=== PATIENT | female | born 1980 | race Caucasian/White ===

== ENCOUNTER 2023-11-24 22:24 | Emergency (ER) | payer OTHER, SELFPAY ==
[2023-11-24 22:35] VITALS: BP 131/95; PULSE 98; RESP 16; TEMP 37.2; O2SAT 98
[2023-11-24 22:51] LABS: Internal Control Within Normal Limits; Strep A Antigen Screen Negative
--- NOTE | 2023-11-24 23:07 | ED_ITS ---
HPI - General Adult General Chief complaint: Upper Respiratory Infection Stated complaint: CONGESTION, SORE THROAT Time Seen by Provider: 11/24/23 23:02 Source: patient Mode of arrival: walk-in Limitations: no limitations History of Present Illness HPI narrative: 43-year-old female presents for sore throat. She and her son are both being seen for the same issue. She developed for sore throat about three days ago. No fever vomiting or productive cough. Hurts more when she swallows. She is primarily worried about strep throat. Related Data Home Medications Medication Instructions Recorded Confirmed desvenlafaxine succinate 50 mg mg PO 11/24/23 tablet,extended release 24 hr levothyroxine 125 mcg tablet mcg 11/24/23 (Synthroid) metformin 500 mg tablet,extended mg PO 11/24/23 release 24 hr omeprazole 20 mg capsule,delayed mg 11/24/23 release potassium bicarbonate-citric acid 11/24/23 25 mEq effervescent tablet (Klor-Con/EF) ropinirole 4 mg tablet mg 11/24/23 sumatriptan succinate 25 mg tablet mg PO 11/24/23 Allergies Allergy/AdvReac Type Severity Reaction Status Date / Time naproxen Allergy Verified 11/24/23 22:38 Penicillins Allergy Verified 11/24/23 22:38 Review of Systems ROS Narrative A ten point review of systems is negative except as noted above. PFSH PFS Social History Smoking status: Never smoker Exam Narrative Exam Narrative: Nurses note and vital signs reviewed and patient is not hypoxic. General: The patient appears well and in no apparent distress. Patient is resting comfortably on cart. Skin: Warm, dry, no pallor noted. There is no rash noted. Head: Normocephalic, atraumatic Eye: Normal conjunctiva, no drainage Ears, Nose, Mouth, and Throat: oral mucosa is moist. Nares patent. no perito nsillar swelling. Uvula midline. There is mild erythema. She is handling her oral secretions well. Cardiovascular: Regular Rate and Rhythm Respiratory: Patient is in no distress, no accessory muscle use, lungs are clear to auscultation, no wheezing, rales or rhonchi Back: non-tender GI: soft and nontender Musculoskeletal: no joint swelling Neurological: A&O, normal speech Psychiatric: Cooperative Constitutional Vital Signs, click to edit/add: Last Vital Signs Temp 98.9 F 11/24/23 22:35 Pulse 98 H 11/24/23 22:35 Resp 16 11/24/23 22:35 BP 131/95 H 11/24/23 22:35 Pulse Ox 98 11/24/23 22:35 Course Vital Signs Vital signs: Vital Signs Temperature 98.9 F 11/24/23 22:35 Pulse Rate 98 H 11/24/23 22:35 Respiratory Rate 16 11/24/23 22:35 Blood Pressure 131/95 H 11/24/23 22:35 Pulse Oximetry 98 11/24/23 22:35 Temperature 98.9 F 11/24/23 22:35 Pulse Rate 98 H 11/24/23 22:35 Respiratory Rate 16 11/24/23 22:35 Blood Pressure 131/95 H 11/24/23 22:35 Pulse Oximetry 98 11/24/23 22:35 Medical Decision Making MDM Narrative Medical decision making narrative: strep test negative. She was given IM Decadron. There is no indication for an antibiotic. Treatment diagnosis and follow-up were discussed with the patient. Differential Diagnosis Differential Diagnosis: strep throat, viral pharyngitis, peritonsillar abscess Lab Data Lab results reviewed: Yes I reviewed the patient's lab results Labs: Lab Results 11/24/23 Range/Units 22:38 Streptococcus Screen Negative Discharge Plan Discharge Chief Complaint: Upper Respiratory Infection Clinical Impression: Viral pharyngitis Patient Disposition: Home, Self-Care Time of Disposition Decision: 23:09 Condition: Good Prescriptions / Home Meds: No Action sumatriptan succinate 25 mg tablet PO levothyroxine [Synthroid] 125 mcg tablet omeprazole 20 mg capsule,delayed release(DR/EC) metformin 500 mg tablet extended release 24 hr PO Klor-Con/EF 25 mEq tablet, effervescent ropinirole 4 mg tablet desvenlafaxine succinate 50 mg tablet extended release 24 hr PO Instructions: Pharyngitis (ED) Stand Alone Forms: Portal Instructions Referrals: REYNA ALVARENGA [Primary Care Provider] - 1 week
[2023-11-24] MEDS: DEXAMETHASONE SOD PHOS 10 MG/ML VIAL IM (23:28)
== END 2023-11-24 23:31 | disposition home or self-care (01) ==
PROVIDERS: Emergency Provider Emergency Medicine; PCP Physician Assistant
DX: J02.9 Acute pharyngitis, unspecified (principal); Z79.84 Long term (current) use of oral hypoglycemic drugs; Z79.899 Other long term (current) drug therapy
CPT/HCPCS: 87070; 87880; 96372; 99284; J1100

== ENCOUNTER 2024-12-08 16:39 | Emergency (ER) | payer OTHER, SELFPAY ==
[2024-12-08] VITALS (19 sets, daily range): BP systolic 126–152; BP diastolic 86–95; PULSE 80–100; TEMP 36.8; O2SAT 80–98; BMI 33.6
--- OUTSIDE RECORDS SUMMARY | 2024-12-08 16:46 | XMS_ITS | CCD ---
Author Organization [facility] Care Team Providers Care Molding Manager Name Role Phone LIZETT TORRES Unavailable Unavailable LIZETT TORRES Unavailable Unavailable Tiffany Quintanilla Attending Unavailable Ant Henderson Primary Care Unavailable PHYLLIS BROWN Consulting Unavailable CAMILA COUGHLIN JR Attending Unavailable CAMILA COUGHLIN JR Admitting Unavailable CAMILA COUGHLIN JR Consulting Unavailable Isabell CABRERA Primary Care Physician Shayy ALAVRENGA Primary Care Physician Shayy Wolfe Unavailable Arjun Krishnamurthy MD Primary Care Provider [phone] Shayy Wolfe Unavailable [phone] Shayy ALVARENGA Referring Unavailable Shayy ALVARENGA Attending Unavailable Shayy ALVARENGA Admitting Unavailable ATIYA WRIGHT Attending Unavailable ATIYA WRIGHT Attending Unavailable SHAYY ALVARENGA Attending Unavailable SHAYY ALVARENGA Attending Unavailable Allergies Allergy Classification Reported Allergen(s) Allergy Type Date of Onset Reaction(s) Facility (19 sources) nalbuphine; Translations: [NALBUPHINE] Drug Allergy 8 GI intolerance [facility] Repository (1 source) penicillin; Translations: [PENICILLIN] Drug Allergy 8 [facility]OF [facility] Repository (2 sources) Nalbuphine; Translations: [Nubain] Drug Allergy 5 [facility] Repository (9 sources) Penicillins; Translations: [penicillins] Drug allergy (disorder) 5 rash [facility] Repository (8 sources) atorvastatin; Translations: [atorvastatin] Drug Allergy leg cramps [facility] (19 sources) Naproxen; Translations: [naproxen] Drug Allergy 3 Other, Unknown [facility] (11 sources) Penicillin G Drug Allergy 8 Hives [facility] Medications Current Medications Medication Drug Class(es) Dates Sig (Normalized) Sig (Original) acyclovir 400 mg oral tablet (5 sources) Herpesvirus Nucleoside Analog DNA Polymerase Inhibitor, Herpes Simplex Virus Nucleoside Analog DNA Polymerase Inhibitor, Herpes Zoster Virus Nucleoside Analog DNA Polymerase Inhibitor Start: 11-05-2024 End: 11-15-2024 take 1 tablet by mouth in the morning, then take 1 tablet by mouth in the evening, then take 1 tablet by mouth at bedtime acyclovir (Zovirax) 400 MG tablet Indications: Oral herpes simplex infection Take 1 tablet (400 mg) by mouth in the morning and 1 tablet (400 mg) in the evening and 1 tablet (400 mg) before bedtime. Do all this for 10 days. 30 tablet 11/05/2024 11/15/2024 Active ascorbic acid 500 mg chewable tablet (11 sources) Vitamin C ascorbic acid (Vitamin C) 500 MG chewable tablet Chew 1 tablet in the morning. Active biotin 10 mg oral tablet (11 sources) take 1 tablet by mouth once daily biotin 90326 MCG tablet Take 1 tablet by mouth 1 (one) time each day at the same time. Active Calcium Citrate (7 sources) Start: 03-31-2019 calcium citrate 2664-6391 mg, Oral, BID, Refills(s) 0 Start Date: 03/31/19 Status: Ordered 24 hr desvenlafaxine succinate 50 mg extended release oral tablet (18 sources) Serotonin and Norepinephrine Reuptake Inhibitor Start: 09-25-2024 take 1 tablet by mouth once daily desvenlafaxine (Pristiq) 50 MG 24 hr tablet Indications: Current mild episode of major depressive disorder, unspecified whether recurrent (HCC) (CMS/HCC) Take 1 tablet (50 mg) by mouth Daily 90 tablet 3 09/25/2024 Active Start: 12-11-2023 End: 09-25-2024 take 1 tablet by mouth every twenty-four hours in the morning desvenlafaxine (Pristiq) 50 MG 24 hr tablet Indications: Current mild episode of major depressive disorder, unspecified whether recurrent (HCC) (CMS/HCC) Take 1 tablet (50 mg) by mouth in the morning. 90 tablet 3 12/11/2023 09/25/2024 Discontinued Start: 06-06-2022 take 1 tablet by reynaldo th once daily Pristiq 50 mg Tab-ER 50 mg = 1 tab(s), Oral, Daily, # 90 tab(s), Refills(s) 3, Pharmacy: [facility], 167, cm, 03/08/22 9:03:00 EDT, Height/Length Dosing, 90.3, kg, 03/08/22 9:03:00 EDT, Weight Dosing Start Date: 06/06/22 Status: Ordered Start: 12-06-2021 take 1 tablet by reynaldo th once daily Pristiq 50 mg Tab-ER 50 mg = 1 tab(s), Oral, Daily, # 90 tab(s), Refills(s) 3, Pharmacy: [facility], 167, cm, 12/06/21 9:27:00 EST, Height/Length Dosing, 91.8, kg, 12/06/21 9:27:00 EST, Weight Dosing Start Date: 12/06/21 Status: Ordered Echinacea 650 MG capsule (11 sources) take 1 capsule by mo [facility] in the morning Echinacea 650 MG capsule Take 1 capsule by mouth in the morning. Active take 1 capsule by mouth in the m orning Echinacea 650 MG capsule Take 1 capsule by mouth in the morning. 0 Active Effer-K 25 mEq oral tablet, effervescent (7 sources) Start: 06-28-2022 End: 06-23-2023 take 1 tablet by mouth twice daily Effer-K 25 mEq oral tablet, effervescent 1 tab, Oral, BID, X 90 day(s), # 180 tab(s), Refills(s) 3, Pharmacy: [facility], 167, cm, 03/08/22 9:03:00 EDT, Height/Length Dosing, 90.3, kg, 03/08/22 9:03:00 EDT, Weight Dosing Start Date: 06/28/22 Stop Date: 06/23/23 Status: Ordered Start: 11-29-2021 take 1 tablet by reynaldo twice daily Effer-K 25 mEq oral tablet, effervescent 1 tab, Oral, BID, # 60 tab(s), Refills(s) 11, Pharmacy: [facility], 167, cm, 09/07/21 10:03:00 EDT, Height/Length Dosing, 88.3, kg, 11/29/21 9:58:00 EST, Weight Dosing Start Date: 11/29/21 Status: Ordered ferrous sulfate 325 mg oral tablet (11 sources) take 1 tablet by mouth at mealtime ferrous sulfate 325 (65 Fe) MG tablet Take 325 mg by mouth in the morning. Take with meals. Active fluticasone propionate 0.05 mg/actuat metered dose nasal spray (1 source) Corticosteroid Start: 2 fluticasone 0.05 mg/inh Nasal [place] 1 spray(s), Nasal, BID, 1 EA, Refill(s) 0, each nostril, [facility], 167, cm, 12/06/21 9:27:00 EST, Height/Length Dosing, 91.8, kg, 12/06/21 9:27:00 EST, Weight Dosing Start Date: 12/06/21 Status: Ordered fluticasone 0.05 mg/inh Nasal [place] (3 sources) Start: 2 fluticasone 0.05 mg/inh Nasal [place] 1 spray(s), Nasal, BID, 1 EA, Refill(s) 0, each nostril, [facility], 167, cm, 12/06/21 9:27:00 EST, Height/Length Dosing, 91.8, kg, 12/06/21 9:27:00 EST, Weight Dosing Start Date: 12/06/21 Status: Ordered hydrOXYzine pamoate 25 mg oral capsule (4 sources) Antihistamine Start: 1 hydrOXYzine pamoate 25 mg Cap 25 mg = 1 cap(s), Oral, Once, Take 1-2 hours prior to bed time, # 30 cap(s), Refills(s) 2, Pharmacy: [facility], 167, cm, 06/07/21 9:35:00 EDT, Height/Length Dosing, 88.8, kg, 06/07/21 9:35:00 EDT, Weight Dosing Start Date: 06/07/21 Status: Ordered levothyroxine sodium 0.125 mg oral tablet (18 sources) l-Thyroxine Start: 4 End: 4 take 1 tablet by mouth before mealtime levothyroxine (Synthroid, Levoxyl) 125 MCG tablet Indications: Acquired hypothyroidism (CMS/HCC) Take 1 tablet (125 mcg) by mouth in the morning. Take before meals. 90 tablet 3 09/25/2024 Active Start: 06-06-2022 take 1 tablet by reynaldo th once daily levothyroxine 125 mcg (0.125 mg) Tab 125 microgram = 1 tab(s), Oral, Daily, # 90 tab(s), Refills(s) 3, Pharmacy: [facility], 167, cm, 03/08/22 9:03:00 EDT, Height/Length Dosing, 90.3, kg, 03/08/22 9:03:00 EDT, Weight Dosing Start Date: 06/06/22 Status: Ordered Start: 05-16-2021 take 1 tablet by reynaldo th once daily levothyroxine 125 mcg (0.125 mg) Tab 125 microgram = 1 tab(s), Oral, Daily, # 90 tab(s), Refills(s) 3, Pharmacy: [facility], 167, cm, 05/16/21 8:36:00 EDT, Height/Length Dosing, 90, kg, 05/16/21 8:36:00 EDT, Weight Dosing Start Date: 05/16/21 Status: Ordered 24 hr metFORMIN hydrochloride 500 mg extended release oral tablet (11 sources) Biguanide Start: 12-11-2023 End: 12-10-2024 take 1 tablet by mouth every twenty-four hours at mealtime metFORMIN XR (Glucophage-XR) 500 MG 24 hr tablet Indications: Prediabetes Take 1 tablet (500 mg) by mouth in the evening. Take with meals 90 tablet 3 09/25/2024 Active Non-Formulary Medication (4 sources) Start: 08-16-2020 Non-Formulary Medication See Instructions, 1 qd po Start Date: 08/16/20 Status: Ordered omeprazole 20 mg delayed release oral capsule (16 sources) Proton Pump Inhibitor Start: 03-26-2019 End: 09-25-2024 take 1 capsule by mouth before mealtime omeprazole (PriLOSEC) [address] capsule Indications: Gastroesophageal reflux disease with esophagitis without hemorrhage Take 1 capsule (20 mg) by mouth in the morning. Take before meals. 90 capsule 3 09/25/2024 Active omeprazole 20 mg Cap-DR (2 sources) Start: 03-26-2019 take 1 capsule by mouth once daily omeprazole 20 mg Cap-DR 20 mg = 1 cap(s), Oral, Daily, # 30 cap(s), Refills(s) 0 Start Date: 03/26/19 Status: Ordered potassium bicarbonate 25 meq effervescent oral tablet (7 sources) Start: 10-29-2023 potassium bicarbonate (Klor-Con/EF) 25 MEQ effervescent tablet Start: 11-29-2021 End: 06-23-2023 take 1 tablet by mouth twice daily Effer-K 25 mEq oral tablet, effervescent 1 tab, Oral, BID, X 90 day(s), # 180 tab(s), Refills(s) 3, Pharmacy: [facility], 167, cm, 03/08/22 9:03:00 EDT, Height/Length Dosing, 90.3, kg, 03/08/22 9:03:00 EDT, Weight Dosing Start Date: 06/28/22 Stop Date: 06/23/23 Status: Ordered predniSONE 20 mg oral tablet (2 sources) Start: 11-11-2024 End: 11-16-2024 take 2 tablets by mouth once daily predniSONE (Deltasone) 20 MG tablet Indications: Lip swelling Take 2 tablets (40 mg) by mouth Daily for 5 days 10 tablet 11/11/2024 11/16/2024 Active 24 hr rOPINIRole 4 mg extended release oral tablet (20 sources) Nonergot Dopamine Agonist Start: 06-19-2024 End: 09-25-2024 rOPINIRole XL (Requip XL) 4 MG 24 hr tablet Indications: Restless leg syndrome TAKE 1 TABLET IN THE MORNING 90 tablet 3 09/25/2024 Active Start: 12-11-2023 take 1 tablet by reynaldo th every twenty-four hours in the morning rOPINIRole XL (Requip XL) 4 MG 24 hr tablet Indications: Restless leg syndrome Take 1 tablet (4 mg) by mouth in the morning. 90 tablet 1 12/11/2023 Active Start: 12-04-2023 take 1 tablet by mouth at bedt moni rOPINIRole (Requip) 4 MG tablet Indications: Restless leg syndrome Take 1 tablet (4 mg) by mouth at bedtime 90 tablet 1 10/29/2023 Active Start: 06-06-2022 take 1 tablet by mouth once da addison ropinirole 2 mg oral tablet, extended release 2 mg = 1 tab(s), Oral, Daily, # 90 tab(s), Refills(s) 2, Pharmacy: [facility], 167, cm, 03/08/22 9:03:00 EDT, Height/Length Dosing, 90.3, kg, 03/08/22 9:03:00 EDT, Weight Dosing Start Date: 06/06/22 Status: Ordered Start: 06-06-2022 take 1 tablet by mouth once da addison ropinirole 2 mg oral tablet, extended release 2 mg = 1 tab(s), Oral, Daily, # 90 tab(s), Refills(s) 2, Pharmacy: [facility], 167, cm, 03/08/22 9:03:00 EDT, Height/Length Dosing, 90.3, kg, 03/08/22 9:03:00 EDT, Weight Dosing Start Date: 06/06/22 Status: Ordered Start: 08-09-2021 take 1 tablet by mouth once da addison ropinirole 2 mg oral tablet, extended release 2 mg = 1 tab(s), Oral, Daily, # 90 tab(s), Refills(s) 2, Pharmacy: [facility], 167, cm, 06/07/21 9:35:00 EDT, Height/Length Dosing, 88.8, kg, 06/07/21 9:35:00 EDT, Weight Dosing Start Date: 08/09/21 Status: Ordered SUMAtriptan 25 mg oral tablet (18 sources) Serotonin-1b and Serotonin-1d Receptor Agonist Start: 10-29-2023 take 1 tablet by mouth once SUMAtriptan (Imitrex) 25 MG tablet Indications: Migraine without status migrainosus, not intractable, unspecified migraine type (CMS/HCC) Take 1 tablet (25 mg) by mouth 1 (one) time if needed for migraine 18 tablet 3 10/29/2023 Active Start: 08-14-2022 Imitrex 25 mg Tab 25 mg = 1 tab(s), Oral, Daily, PRN for migraine headache, may repeat dose after 2 hours up to a maximum of 200 mg in 24 hours, # 18 tab(s), Refills(s) 1, Pharmacy: [facility], 167, cm, 03/08/22 9:03:00 EDT, Height/Length Dosing, 90.3, kg, 03/08/22 9:03:00 EDT, Weight Dosing Start Date: 07/09/22 Status: Ordered Start: 03-08-2022 Imitrex 25 mg Tab 25 mg = 1 tab(s), Oral, Daily, PRN for migraine headache, may repeat dose after 2 hours up to a maximum of 200 mg in 24 hours, # 18 tab(s), Refills(s) 1, Pharmacy: [facility], 167, cm, 03/08/22 9:03:00 EDT, Height/Length Dosing, 90.3,... Start Date: 03/08/22 Status: Ordered Start: 11-15-2020 Imitrex 25 mg Tab 25 mg = 1 tab(s), Oral, Daily, PRN for migraine headache, may repeat dose after 2 hours up to a maximum of 200 mg in 24 hours, # 18 tab(s), Refills(s) 1, Pharmacy: [facility], 167, cm, 11/15/20 9:12:00 EST, Height/Length Dosing, 84.9,... Start Date: 11/15/20 Status: Ordered traZODone hydrochloride 50 mg oral tablet (4 sources) Serotonin Reuptake Inhibitor Start: 09-07-2021 take 1 tablet by mouth once daily at bedtime traZODONE 50 mg Tab 50 mg = 1 tab(s), Oral, Once a day (at bedtime), # 30 tab(s), Refills(s) 2, Pharmacy: [facility], 167, cm, 09/07/21 10:03:00 EDT, Height/Length Dosing, 88.3, kg, 09/07/21 10:06:00 EDT, Weight Dosing Start Date: 09/07/21 Status: Ordered Vitamin B Complex oral capsule (7 sources) Start: 03-26-2019 take 1 capsule by mouth once daily Vitamin B Complex oral capsule 1 cap(s), Oral, Daily, Refill(s) 0 Start Date: 03/26/19 Status: Ordered vitamin B12 (7 sources) Vitamin B12 Start: 03-26-2019 Vitamin B12 Refills(s) 0 Start Date: 03/26/19 Status: Ordered Completed/Discontinued Medications Medication Drug Class(es) Dates Sig (Normalized) Sig (Original) K-Effervescent 25 mEq oral tablet, effervescent (3 sources) Start: 11-24-2022 take 1 tablet by mouth twice daily K-Effervescent 25 mEq oral tablet, effervescent 25 mEq = 1 tab(s), Oral, BID, # 180 tab(s), Refills(s) 3, Pharmacy: [facility], 167, cm, 11/24/22 10:06:00 EST, Height/Length Dosing, 88, kg, 11/24/22 10:06:00 EST, Weight Dosing Start Date: 11/24/22 Status: Ordered Problems Active Problems Problem Classification Problem Date Documented Da te Episodic/Chronic Anxiety disorders (20 sources) Anxiety; Translations: [Anxiety disorder, unspecified] Onset: 3 05-16-2021 Chronic Calculus of urinary tract (18 sources) Calculus of kidney; Translations: [Kidney stone] Onset: 0 01-11-2015 Episodic Diabetes mellitus with complications (7 sources) Type II diabetes mellitus uncontrolled 10-23-2015 Chronic Diseases of mouth; excluding dental (4 sources) Oral lesion; Translations: [Unspecified lesions of oral mucosa] 11-05-2024 Episodic Disorders of lipid metabolism (16 sources) Hyperlipidemia; Translations: [Hypertriglyceridemia] Onset: 2 06-07-2021 Chronic Esophageal disorders (19 sources) Gastroesophageal reflux disease; Translations: [Gastro-esophageal reflux disease without esophagitis] Onset: 3 05-21-2015 Chronic Essential hypertension (20 sources) Hypertensive disorder; Translations: [Essential hypertension] Onset: 8 05-21-2015 Chronic Genitourinary symptoms and ill-defined conditions (7 sources) Genuine stress incontinence 10-19-2020 Chronic Headache; including migraine (19 sources) Migraine; Translations: [Migraine, unspecified, intractable, without status migrainosus] Onset: 3 08-26-2019 Chronic Mood disorders (20 sources) Depressive disorder; Translations: [Mild recurrent major depression] Onset: 2 03-31-2019 Chronic Other complications of ; puerperium affecting management of mother (7 sources) Deliveries by 05-16-2021 Episodic Other complications of (7 sources) Late entry into care 11-28-2011 Episodic Other connective tissue disease (7 sources) Pain in lower limb 06-09-2020 Episodic Other gastrointestinal disorders (7 sources) 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 Other gastrointestinal disorders (1 source) Bariatric surgery status; Translations: [Bariatric surgery status] Onset: 2 Episodic Other hereditary and degenerative nervous system conditions (19 sources) Restless legs; Translations: [Restless legs syndrome] Onset: 3 08-16-2020 Chronic Other nervous system disorders (7 sources) Paresthesia 08-26-2019 Episodic Other nervous system disorders (7 sources) Paresthesia of lower extremity 06-09-2020 Episodic Other nutritional; endocrine; and metabolic disorders (1 source) Morbid (severe) obesity due to excess calories; Translations: [Morbid (severe) obesity due to excess calories] Onset: 8 Chronic Other nutritional; endocrine; and metabolic disorders (20 sources) Body mass index 30+ - obesity 06-09-2020 Chronic Other nutritional; endocrine; and metabolic disorders (20 sources) Obesity; Translations: [Other obesity] Onset: 2 05-16-2021 Chronic Other nutritional; endocrine; and metabolic disorders (1 source) Obese class I; Translations: [Body mass index (BMI) 32.0-32.9, adult] Onset: 2 Chronic Other nutritional; endocrine; and metabolic disorders (11 sources) Morbid obesity; Translations: [Morbid (severe) obesity due to excess calories] Onset: 8 06-08-2023 Chronic Other nutritional; endocrine; and metabolic disorders (14 sources) Body mass index 25-29 - overweight 06-15-2020 Episodic Other nutritional; endocrine; and metabolic disorders (7 sources) H/O: diabetes mellitus 05-16-2021 Episodic Other nutritional; endocrine; and metabolic disorders (7 sources) H/O: raised blood lipids 05-16-2021 Episodic Other skin disorders (4 sources) Lip swelling; Translations: [Localized swelling, mass and lump, head] 11-05-2024 Episodic Residual codes; unclassified (7 sources) Increased body mass index 03-29-2020 Episodic Residual codes; unclassified (8 sources) Insomnia; Translations: [Insomnia, unspecified] Onset: 2 06-07-2021 Episodic Residual codes; unclassified (3 sources) Patient encounter status; Translations: [Other specified health status] Onset: 2 Episodic Thyroid disorders (20 sources) Hypothyroidism; Translations: [Hypothyroidism, unspecified] Onset: 2 02-06-2014 Chronic Urinary tract infections (7 sources) Acute urinary tract infection 05-16-2021 Episodic Viral infection (2 sources) Oral herpes simplex infection; Translations: [Herpesviral gingivostomatitis and pharyngotonsillitis] 11-05-2024 Episodic Past or Other Problems Problem Classification Problem Date Documented Date Episodic/Chronic Diabetes mellitus without complication (20 sources) Prediabetes; Translations: [Prediabetes] Onset: 03-08-2022 07-20-2020 Episodic Noninfectious gastroenteritis (7 sources) Gastroenteritis Onset: 05-20-2015 05-26-2015 Episodic Comment on above: ABD PAIN, DIARRHEA, NAUSEA, NO VOMITING, PT WAS SEEN IN ER ABD PAIN, DIARRHEA, NAUSEA, NO VOMITING, PT WAS SEEN IN ER Results Test Name Value Interpretation Reference Range Facility [place] Mamm Screen w/CAD if perf and 3D [place] 08-12-2024 [place] Mamm Screen w/CAD if perf and 3D [place] Exam Date/Time: 08/12/2024 15:31 EDT Reason for Exam: Z12.31 Report IMPRESSION: BIRADS 1 NEGATIVE, NORMAL INTERVAL FOLLOW-UP.12 MONTH RECALL. CLINICAL HISTORY: Z12.31. COMPARISON: 04/11/2023. COMMENT: Routine views and tomosynthesis views of both breasts were obtained. There are scattered areas of fibroglandular density. No dominant breast mass nor neoplastic calcifications are identified in either breast. There has been no significant change from the previous exam. The examination was reviewed with Computer Aided Detection. Breast Density: No Mammography is very important to your health. The current [employer] [place] [employer] and National [employer] guidelines recommends annual mammography beginning at age 40. This facility utilizes a reminder system to ensure all patients receive reminder notifications at the appropriate time based on the recommendations of this exam. Board Certified Radiologists. Accredited by the ACR and FDA. Ordering Provider: Shayy ALVARENGA FINAL REPORT Dictated: 08/12/2024 3:36 pm Hamlet Velez M.D. Signed (Electronic Signature): 08/12/2024 3:36 pm Signed by: Hamlet Velez M.D. Transcribed by: YOSHI Technologist: PREETHI Assessment: BI-RADS Category 1-Negative Recommendation: Normal interval follow-up Normal [facility] CBC W Auto Differential pane l (Bld)on 12-24-2023 Basophils (Bld) [#/Vol] 19 10*3/uL [facility] Basophils/100 WBC (Bld) 0.3 % [facility] Eosinophils (Bld) [#/Vol] 141 10*3/uL [facility] Eosinophils/100 WBC (Bld) 2.2 % [facility] Erythrocyte distribution width (RBC) [Ratio] 13.0 % 11.0 - 15.0 % [facility] Hematocrit (Bld) [Volume fraction] 38.3 % 35.0 - 45.0 % [facility] Hemoglobin (Bld) [Mass/Vol] 13.0 g/dL 11.7 - 15.5 g/dL [facility] Lymphocytes (Bld) [#/Vol] 2285 10*3/uL [facility] Lymphocytes/100 WBC (Bld) 35.7 % [facility] MCH (RBC) [Entitic mass] 30.2 pg 27.0 - 33.0 pg [facility] MCHC (RBC) [Mass/Vol] 33.9 g/dL 32.0 - 36.0 g/dL [facility] MCV (RBC) [Entitic vol] 89.1 fL 80.0 - 100.0 fL [facility] Monocytes (Bld) [#/Vol] 544 10*3/uL [facility] Monocytes/100 WBC (Bld) 8.5 % [facility] Neutrophils (Bld) [#/Vol] 3411 10*3/uL [facility] Neutrophils/100 WBC (Bld) 53.3 % [facility] Platelet mean volume (Bld) [Entitic vol] 11.2 fL 7.5 - 12.5 fL [facility] Platelets (Bld) [#/Vol] 266 10*3/uL [facility] RBC (Bld) [#/Vol] 4.30 10*6/uL [facility] WBC (Bld) [#/Vol] 6.4 10*3/uL [facility] Laboratory - Chemistry and C hemistry - challengeon 12-24-2023 Albumin [Mass/Vol] 4.3 g/dL 3.6 - 5.1 g/dL [facility] Albumin/Globulin [Mass ratio] 1.4 {ratio} [facility] ALP [Catalytic activity/Vol] 65 U/L 31 - 125 U/L [facility] ALT [Catalytic activity/Vol] 13 U/L 6 - 29 U/L [facility] AST [Catalytic activity/Vol] 17 U/L 10 - 30 U/L [facility] Bilirubin [Mass/Vol] 0.3 mg/dL 0.2 - 1.2 mg/dL [facility] Calcium [Mass/Vol] 9.4 mg/dL 8.6 - 10. 2 mg/dL [facility] Chloride [Moles/Vol] 103 mmol/L 98 - 110 mmol/L [facility] CO2 [Moles/Vol] 26 mmol/L 20 - 32 mmol/L [facility] Creatinine [Mass/Vol] 0.72 mg/dL 0.50 - 0.99 mg/dL [facility] Free T4 [Mass/Vol] 1.1 ng/dL 0.8 - 1.8 ng/dL [facility] GFR/1.73 sq M.predicted among non-blacks MDRD (S/P/Bld) [Vol rate/Area] 106 mL/min/{1.73_m2} > OR = 60 mL/min/1.73 m2 [facility] Globulin (S) [Mass/Vol] 3.1 g/dL [facility] Glucose [Mass/Vol] 102 mg/dL High 65 - 99 mg/dL [facility] Comment on above: Fasting reference interval For someone without known diabetes, a glucose value between 100 and 125 mg/dL is consistent with prediabetes and should be confirmed with a follow-up test. Potassium [Moles/Vol] 4.2 mmol/L 3.5 - 5.3 mmol/L [facility] Protein [Mass/Vol] 7.4 g/dL 6.1 - 8.1 g/dL [facility] Sodium [Moles/Vol] 138 mmol/L 135 - 146 mmol/L [facility] TSH Qn 6.11 m[IU]/L High mIU/L [facility] Comment on above: Reference Range > or = 20 Years 0.40-4.50 Ranges First trimester 0.26-2.66 Second trimester 0.55-2.73 Third trimester 0.43-2.91 Urea nitrogen [Mass/Vol] 15 mg/dL 7 - 25 mg/dL [facility] Urea nitrogen/Creatinin e [Mass ratio] SEE NOTE: [facility] Comment on above: Not Reported: BUN an d Creatinine are within reference range. Laboratory - Hematology and Cell countson 12-24-2023 HbA1c (Bld) [Mass fraction] 6.0 % High NINF [facility] Comment on above: For someone without known diabetes, a hemoglobin A1c value between 5.7% and 6.4% is consistent with prediabetes and should be confirmed with a follow-up test. For someone with known diabetes, a value <7% indicates that their diabetes is well controlled. A1c targets should be individualized based on duration of diabetes, age, comorbid conditions, and other considerations. This assay result is consistent with an increased risk of diabetes. Currently, no consensus exists regarding use of hemoglobin A1c for diagnosis of diabetes for children. HbA1c performed on [employer] platform. Effective 11/13/23 a change in test platforms may have shifted HbA1c results compared to historical results. No Panel Informationon 12-24 Interpretation and review of laboratory results Abnormal [facility] Performing Organizat ion Information Site ID: QPT Name: [facility] Address: [address] [place] [address], [address] [place] [id number] Director: Enrique Miranda MD [facility] CHEMISTRYOrdered By: Lab ROP User on 01-14-2023 Glucose [Mass/Vol] 105 mg/dL High 55 - 99 mg/dL [facility] POC Subsection POC Device SN [id number] Invalid Interpretation Code [facility] [facility] Subsection POC User ID [id number] Invalid Interpretation Code [facility] Subsection POC Username CASSANDRA FAITH Invalid Interpretation Code [facility] Subsection CHEMISTRYOrdered By: SYSTEM SYSTEM on 01-05-2023 Albumin [Mass/Vol] 3.9 g/dL Normal 3.3 - 5.0 gm/dL [facility] Albumin/Globulin [Mass ratio] 1.0 {ratio} Low 1.1 - 2.2 [facility] ALP [Catalytic activity/Vol] 56 [iU]/d Normal 21 - 98 Int._Unit/L [facility] ALT No additional P-5'-P [Catalytic activity/Vol] 17 [iU]/d Normal 6 - 46 Int._Unit/L [facility] Anion gap [Moles/Vol] 12 mmol/L Normal 6 - 16 mEq/L [facility] AST [Catalytic activity/Vol] 16 [iU]/d Normal 5 - 43 Int._Unit/L [facility] Bilirubin [Mass/Vol] 0.6 mg/dL Normal 0.0 - 1.1 mg/dL [facility] Calcium [Mass/Vol] 9.1 mg/dL Normal 8.9 - 11. 1 mg/dL [facility] Chloride [Moles/Vol] 104 mmol/L Normal 101 - 111 mmol/L [facility] CO2 [Moles/Vol] 27 mmol/L Normal 21 - 31 mmol/L [facility] Creatinine [Mass/Vol] 0.9 mg/dL Normal 0.5 - 1.3 mg/dL [facility] GFR/1.73 sq M.predicted among blacks MDRD (S/P/Bld) [Vol rate/Area] mL/min/1.73 m2 Normal >=59mL/min/ 1.73 m2 [facility] S GFR/1.73 sq M.predicted among non-blacks MDRD (S/P/Bld) [Vol rate/Area] mL/min/1.73 m2 Normal >=59mL/min/ 1.73 m2 [facility] S Globulin (S) [Mass/Vol] 3.8 g/dL Normal 1.4 - 4.0 gm/dL [facility] Glucose [Mass/Vol] 105 mg/dL Normal 55 - 199 mg/dL [facility] Potassium [Moles/Vol] 4.4 mmol/L Normal 3.5 - 5.3 mmol/L [facility] Protein [Mass/Vol] 7.7 g/dL Normal 6.0 - 7.8 gm/dL [facility] Sodium [Moles/Vol] 139 mmol/L Normal 135 - 145 mmol/L [facility] TSH Qn 4.76 m[IU]/L Normal 0.34 - 5.60 mcIU/mL [facility] Urea nitrogen [Mass/Vol] 20 mg/dL Normal 5 - 21 mg/dL [facility] Urea nitrogen/Creatinin e [Mass ratio] 22 mg/mg High 10 - 20 [facility] CHEMISTRYOrdered By: Karl Roberts on 01-05-2023 HbA1c (Bld) [Mass fraction] 6.0 % High <=5.9% [facility] ChemAutoSS CHEMISTRYOrdered By: SYSTEM SYSTEM on 07-17-2022 Albumin [Mass/Vol] 4.1 g/dL Normal 3.3 - 5.0 gm/dL [facility] Albumin/Globulin [Mass ratio] 1.2 {ratio} Normal 1.1 - 2.2 [facility] ALP [Catalytic activity/Vol] 53 [iU]/d Normal 21 - 98 Int._Unit/L [facility] ALT No additional P-5'-P [Catalytic activity/Vol] 17 [iU]/d Normal 6 - 46 Int._Unit/L [facility] Anion gap [Moles/Vol] 10 mmol/L Normal 6 - 16 mEq/L [facility] AST [Catalytic activity/Vol] 18 [iU]/d Normal 5 - 43 Int._Unit/L [facility] Bilirubin [Mass/Vol] 0.3 mg/dL Normal 0.0 - 1.1 mg/dL [facility] Calcium [Mass/Vol] 8.9 mg/dL Normal 8.9 - 11. 1 mg/dL [facility] Chloride [Moles/Vol] 105 mmol/L Normal 101 - 111 mmol/L [facility] Cholesterol [Mass/Vol] 203 mg/dL High 120 - 200 mg/dL [facility] Cholesterol in HDL [Mass/Vol] 47 mg/dL Invalid Interpretation Code [facility] Cholesterol in LDL [Mass/Vol] 156 mg/dL High <=129mg/dL [facility] Cholesterol in VLDL [Mass/Vol] 19 mg/dL Normal 7 - 40 mg/dL [facility] CO2 [Moles/Vol] 25 mmol/L Normal 21 - 31 mmol/L [facility] Creatinine [Mass/Vol] 0.6 mg/dL Normal 0.5 - 1.3 mg/dL [facility] GFR/1.73 sq M.predicted among blacks MDRD (S/P/Bld) [Vol rate/Area] mL/min/1.73 m2 Normal >=59mL/min/ 1.73 m2 [facility] Chem S GFR/1.73 sq M.predicted among non-blacks MDRD (S/P/Bld) [Vol rate/Area] mL/min/1.73 m2 Normal >=59mL/min/ 1.73 m2 [facility] S Globulin (S) [Mass/Vol] 3.5 g/dL Normal 1.4 - 4.0 gm/dL [facility] Glucose [Mass/Vol] 105 mg/dL Normal 55 - 199 mg/dL [facility] Potassium [Moles/Vol] 3.5 mmol/L Normal 3.5 - 5.3 mmol/L [facility] Protein [Mass/Vol] 7.6 g/dL Normal 6.0 - 7.8 gm/dL [facility] Sodium [Moles/Vol] 136 mmol/L Normal 135 - 145 mmol/L [facility] Triglyceride [Mass/Vol] 93 mg/dL Normal <=149mg/dL [facility] TSH Qn 3.92 m[IU]/L Normal 0.34 - 5.60 mcIU/mL [facility] Urea nitrogen [Mass/Vol] 13 mg/dL Normal 5 - 21 mg/dL [facility] Urea nitrogen/Creatinin e [Mass ratio] 22 mg/mg High 10 - 20 [facility] CHEMISTRYOrdered By: Nena Del Cid on 07-17-2022 HbA1c (Bld) [Mass fraction] 6.0 % High <=5.9% [facility] ChemAutoSS CHEMISTRYOrdered By: SYSTEM SYSTEM on 03-06-2022 Albumin [Mass/Vol] 3.9 g/dL Normal 3.3 - 5.0 gm/dL [facility] Albumin/Globulin [Mass ratio] 1.0 {ratio} Low 1.1 - 2.2 [facility] ALP [Catalytic activity/Vol] 61 [iU]/d Normal 21 - 98 Int._Unit/L [facility] ALT No additional P-5'-P [Catalytic activity/Vol] 22 [iU]/d Normal 6 - 46 Int._Unit/L [facility] Anion gap [Moles/Vol] 11 mmol/L Normal 6 - 16 mEq/L [facility] AST [Catalytic activity/Vol] 19 [iU]/d Normal 5 - 43 Int._Unit/L [facility] Bilirubin [Mass/Vol] 0.7 mg/dL Normal 0.0 - 1.1 mg/dL [facility] Calcium [Mass/Vol] 9.3 mg/dL Normal 8.9 - 11. 1 mg/dL [facility] Chloride [Moles/Vol] 103 mmol/L Normal 101 - 111 mmol/L [facility] Cholesterol [Mass/Vol] 223 mg/dL High 120 - 200 mg/dL [facility] Cholesterol in HDL [Mass/Vol] 51 mg/dL Invalid Interpretation Code [facility] Cholesterol in LDL [Mass/Vol] 157 mg/dL High <=129mg/dL [facility] Cholesterol in VLDL [Mass/Vol] 33 mg/dL Normal 7 - 40 mg/dL [facility] CO2 [Moles/Vol] 29 mmol/L Normal 21 - 31 mmol/L [facility] Creatinine [Mass/Vol] 0.7 mg/dL Normal 0.5 - 1.3 mg/dL [facility] GFR/1.73 sq M.predicted among blacks MDRD (S/P/Bld) [Vol rate/Area] mL/min/1.73 m2 Normal >=59mL/min/ 1.73 m2 [facility] Chem S GFR/1.73 sq M.predicted among non-blacks MDRD (S/P/Bld) [Vol rate/Area] mL/min/1.73 m2 Normal >=59mL/min/ 1.73 m2 [facility] S Globulin (S) [Mass/Vol] 3.8 g/dL Normal 1.4 - 4.0 gm/dL [facility] Glucose [Mass/Vol] 104 mg/dL Normal 55 - 199 mg/dL [facility] Potassium [Moles/Vol] 3.8 mmol/L Normal 3.5 - 5.3 mmol/L [facility] Protein [Mass/Vol] 7.7 g/dL Normal 6.0 - 7.8 gm/dL [facility] Sodium [Moles/Vol] 139 mmol/L Normal 135 - 145 mmol/L [facility] Triglyceride [Mass/Vol] 165 mg/dL High <=149mg/dL [facility] TSH Qn 4.38 m[IU]/L Normal 0.34 - 5.60 mcIU/mL [facility] Urea nitrogen [Mass/Vol] 13 mg/dL Normal 5 - 21 mg/dL [facility] Urea nitrogen/Creatinin e [Mass ratio] 19 mg/mg Normal 10 - 20 [facility] CHEMISTRYOrdered By: Meseret Echevarria on 03-06-2022 HbA1c (Bld) [Mass fraction] 5.9 % Normal <=5.9% [facility] ChemAutoSS XR KUB 1 VIEWon 10-19-2020 XR KUB 1 VIEW EXAMINATION: XR KUB 1 VIEW HISTORY: Kidney stone COMPARISON: KUB 10/21/2019 FINDINGS: KIDNEY/URETER - RIGHT: No visible renal or ureteral calcifications. KIDNEY/URETER - LEFT: No visible renal or ureteral calcifications. PELVIS: No visible ureteral calcifications. Stable pelvic calcifications favor phleboliths. BOWEL: No abnormal dilation or deviation. BONES: No acute abnormality. OTHER: Surgical clips overlie the descending colon. IMPRESSION: 1. No visible urinary tract calculi. Electronically authenticated by: PHYLLIS BROWN Date: 2020-10-19 16:19 Normal [facility] XR hip LT min 2V(w/wo pelvis )*on 12-20-2018 XR hip LT min 2V(w/wo pelvis)* [facility] [place] [address] XRay Report Signed Patient: Maria Dolores Phillip MR#: [id number] : 1980 Acct:[id number] Age/Sex: 38 / F ADM Date: 12/20/18 Loc: [place] Room: Type: REG REF Attending Dr: Tiffany Quintanilla NP-C Ordering Provider: LISETH Gonzalez Date of Service: 12/20/18 XR/XR hip LT min 2V(w/wo pelvis)*: LEFT HIP PAIN Copies to: LISETH Gonzalez XR hip LT min 2V(w/wo pelvis)* 12/20/2018 4:07 PM SIGNS AND SYMPTOMS: LEFT HIP PAIN PROTOCOL: Frontal and frog-leg views of the left hip with frontal view of the pelvis. COMPARISON: None FINDINGS: There is no evidence of fracture or dislocation. Joint spaces of the hips are preserved. The sacroiliac joints and symphysis pubis are preserved. XR/XR hip LT min 2V(w/wo pelvis)* IMPRESSION: No fracture or dislocation. No significant degenerative change. Impression dictated by: Vikram Espinoza M.D.12/20/2018 4:39 PM Dictation Location: [facility] Transcribed By: [facility] 12/20/18 0999 Dictated By: Vikram Espinoza II, MD 12/20/18 1639 Signed By: 12/20/18 9245 [facility] Basic Metabolic Panlon 06-11 Anion gap 14 mmol/L Normal 9-18 [facility] Comment on above: Performed By: #### C BCDIF, BMP, MG1, PHOS ####[place] [phone] Calcium 8.6 mg/dL Normal 8.5-10.5 [facility] Comment on above: Performed By: #### C BCDIF, BMP, MG1, PHOS ####[place] [phone] Chloride 101 mmol/L Normal 98-110 [facility] Comment on above: Performed By: #### C BCDIF, BMP, MG1, PHOS ####[place] [phone] CO2 23 mmol/L Normal 23-32 [facility] Comment on above: Performed By: #### C BCDIF, BMP, MG1, PHOS ####[phone] Creatinine 0.65 mg/dL Low 0.70-1.40 [facility] Comment on above: Performed By: #### C BCDIF, BMP, MG1, PHOS ####[place] [address] eGFR (non-black) mL/min/{1.73_m2} Normal >60 [facility] Comment on above: Performed By: #### C BCDIF, BMP, MG1, PHOS ####[place] [address] eGFR- Amer. >60 Normal >60 [facility] Comment on above: Performed By: #### C BCDIF, BMP, MG1, PHOS ####[place] [address] Glucose mass conc 161 mg/dL High 65-100 [facility] Comment on above: Performed By: #### C BCDIF, BMP, MG1, PHOS ####[place] [address] Potassium molar conc 3.8 mmol/L Normal 3.5-5.0 [facility] Comment on above: Performed By: #### C BCDIF, BMP, MG1, PHOS ####[place] [address] Sodium 138 mmol/L Normal 132-148 [facility] Comment on above: Performed By: #### C BCDIF, BMP, MG1, PHOS ####[place] [address] Urea nitrogen 10 mg/dL Normal 8-25 [facility] Comment on above: Performed By: #### C BCDIF, BMP, MG1, PHOS ####[place] [address] CASE MGT INIT ASSBUBBAon 2017 CASE MGT INIT ASSES HNO ID: [id number]: Isabella RecioRn) Endy, RNService: Care ManagementAuthor Type: Registered NurseType: Care Mgt Initial AssessmentFiled: 06/10/2018 10:49 PMNote Text:CARE MANAGEMENT: ASSESSMENT AND DISCHARGE PLANSERVICE DATE: 06/10/2018SERVICE TIME: 10:46 PMPRIMARY CARE PHYSICIAN:Isabell Cabrera, NPPhone: [id number] STATUS: Extended RecoveryNeeds Prior to Discharge: Pharmacy Bedside DeliveryMEDICAL:Patient/Repre sentative Stated Goals:To have reduction in symptomsTo ease into new life transition (care facility, hospice, palliative care)Health Insurance: AETNA CHOICE POS [facility] Issues Impacting Discharge Plan: Chronic DM2; HTNLast Admission Date: noneIs this Within the Past 30 days? NoAdvance Directive:Current Advance Directive: NoneCare Local Coordinator Assisted with AD Completion: YesAction: Education Provided;Patient UnwillingHealth Literacy:1. How often do you need to have someone help you when you readinstructions, pamphlets, or other written material from your doctor orpharmacy? Never - 12. How confident are you filling out medical forms by yourself? Extremely- 1If Patient scores > 3 on either question, the following interventions wereput into place:Patient did not score > 3FUNCTIONAL AND COGNITIVE/BEHAVIORALPRIOR TO ADMISSION:Baseline Mental Status: Alert AND Oriented, Person, Place , Time andSituationFunctional Status: IndependentDoes Patient Currently Receive Any Community Services or Home Care? NoneEquipment Prior to Admission: GlucometerHas the Patient Been in a Jail Facility in the Past 30 days? NoSOCIAL:Living Arrangement: HomeLives With: Spouse and two childrenFinancial Resources: Employed: Juvenile Correction OfficerPrimary Contact: Extended Emergency Contact InformationPrimary Emergency Contact: Gerry PhillipAddress: [address] [place] [address] [facility] Ylalgh Ydtywfgn: SpouseSecondary Emergency Contact: Aruna Garces Waoizu Glnrttje: MotherSupportive: YesOther Important Patient Contacts: NoneCaregiver Assessment:Caregiver is ready, willing and able to meet the patient's needs asrecommended by the inter-professional team? No Caregiver NeededPatient's transition needs and plan for meeting these needs: Home with noanticipated skilled transitional care needs.Does the patient have an acute stroke diagnosis, or has the patient had astroke during this admission? NoMedication Adherence:I am convinced of the importance of my prescription medication: Agreecompletely - 0I worry that my prescription medication will do more harm than good to meDisagree completely - 0I feel financially burdened by my lye-ij-wzsyva expenses for myprescription medication: Disagree completely - 0Patient is categorized as low risk < 2Are you interested in bedside delivery of your medications? YesFood Concerns:In the Last Month, Have You had Trouble Getting Food? No trouble gettingfoodDuring the Last Month, Have You Worried Whether Your Food Would Run OutBefore You Had Enough Money to Buy More? NoIs the Patient Psychosocially Complex? NoASSESSMENT AND PLAN:Medical Needs: Diabetes - To be followed post op. and ObesityPsychosocial Needs: Mental Health Diagnosis: Depression, anxietyFREEDOM OF CHOICE EXPLAINED:N/APOTENTIAL TRANSITION PLANSHomeAssessed at bedside with supportive spouse present. He will transportpatient home at discharge. Maria Dolores Phillip has no anticipated skilledtransitional care needs at the time of this assessment.SIGNATURE: Isabella Schumacher RN [facility] PATIENT NAME: Maria Dolores PhillipDATE: June 10, 2018 : 10:45 PM PAGER/CONTACT #: Normal [facility] CBC and Differentialon 06-11 Abs Baso <0.03 Normal <0.11 [facility] Comment on above: Performed By: #### C BCDIF, BMP, MG1, PHOS ####[facility] [place], [place] [phone] Abs Brewster 0.81 k/uL Normal <0.87 [facility] Comment on above: Performed By: #### C BCDIF, BMP, MG1, PHOS ####[address] [phone] Abs Neut 7.12 k/uL Normal 1.45-7.50 [facility] Comment on above: Performed By: #### C BCDIF, BMP, MG1, PHOS ####[place] [phone] Basophils/100 WBC Auto (Bld) 0.1 % Normal [facility] Comment on above: Performed By: #### C BCDIF, BMP, MG1, PHOS ####[place] [address] DTYPE Auto Diff Normal [facility] Comment on above: Performed By: #### C BCDIF, BMP, MG1, PHOS ####[place] [phone] Eosinophils 10*3/uL Normal <0.46 [facility] Comment on above: Performed By: #### C BCDIF, BMP, MG1, PHOS ####[place] [phone] Eosinophils/100 leukocytes 0.1 % Normal [facility] Comment on above: Performed By: #### C BCDIF, BMP, MG1, PHOS ####[place] [address] Erythrocyte distribution width Auto Ratio (RBC) 13.7 % Normal 11.5-15.0 [facility] Comment on above: Performed By: #### C BCDIF, BMP, MG1, PHOS ####[place] [phone] Erythrocytes (RBC) 3.97 10*6/uL Normal 3.90-5.20 [facility] Comment on above: Performed By: #### C BCDIF, BMP, MG1, PHOS ####[address] Hematocrit (HCT) 36.2 % Normal 36.0-46.0 [facility] Comment on above: Performed By: #### C BCDIF, BMP, MG1, PHOS ####[place] [phone] Hemoglobin mass conc (Bld) 11.7 g/dL Normal 11.5-15.5 [facility] Comment on above: Performed By: #### C BCDIF, BMP, MG1, PHOS ####[place] [address] Lymphocytes 1.52 10*3/uL Normal 1.00-4.00 [facility] Comment on above: Performed By: #### C BCDIF, BMP, MG1, PHOS ####[place] [address] Lymphocytes/100 leukocytes 16.1 % Normal [facility] Comment on above: Performed By: #### C BCDIF, BMP, MG1, PHOS ####[place] [address] MCH 29.5 pG Normal 26.0-34.0 [facility] Comment on above: Performed By: #### C BCDIF, BMP, MG1, PHOS ####[place] [address] MCHC mass conc (RBC) 32.3 g/dL Normal 30.5-36.0 [facility] Comment on above: Performed By: #### C BCDIF, BMP, MG1, PHOS ####[place] [address] MCV 91.2 fL Normal 80.0-100.0 [facility] Comment on above: Performed By: #### C BCDIF, BMP, MG1, PHOS ####[place] [address] Monocytes/100 leukocytes 8.6 % Normal [facility] Comment on above: Performed By: #### C BCDIF, BMP, MG1, PHOS ####[place] [id number] Neutrophils/100 WBC Auto (Bld) 75.1 % Normal [facility] Comment on above: Performed By: #### C BCDIF, BMP, MG1, PHOS ####[place] [address] Platelet mean volume (PMV) 10.4 fL Normal 9.0-12.7 [facility] Comment on above: Performed By: #### C BCDIF, BMP, MG1, PHOS ####[place] [phone] [place] [phone] Platelets 218 10*3/uL Normal 150-400 [facility] Comment on above: Performed By: #### C BCDIF, BMP, MG1, PHOS ####[phone] WBC (Leukocytes) 9.47 10*3/uL Normal 3.70-11.00 [facility] Comment on above: Performed By: #### C BCDIF, BMP, MG1, PHOS ####[place] [phone] Magnesiumon 06-11-2018 Magnesium 1.8 mg/dL Normal 1.7-2.6 [facility] Comment on above: Performed By: #### C BCDIF, BMP, MG1, PHOS ####[place] [phone] NURSING PROGon 06-11-2018 NURSING PROG HNO ID: [id number] thor: Yennifer (Rn) Vitaly, RNService: (none)Author Type: Registered NurseType: Nursing Progress NoteFiled: 06/11/2018 5:34 PMNote Text: Nursing Progress NotePatient Name: Maria Dolores PhillipMRN: [id number] Location: [place] [address]/[id number] _Daily Note:Heplock removed.Home-going instructions given,understoodinstructions. Belongings packed and sent home with patient.Discharged perwheelchair to .This note was completed by: Yennifer Haider, SWEETIE Normal [facility] NURSING PROG HNO ID: [id number] thor: Yennifer RecioRn) Vitaly, Donnieice: (none)Author Type: Registered NurseType: Nursing Progress NoteFiled: 06/11/2018 1:40 PMNote Text: Nursing Progress NotePatient Name: Maria Dolores PhillipMRN: [id number] Location: [place] [address]/[id number] _Daily Note:Taking diet well.Voiding clear urine.Lap sites intact-nodrainage noted.Abd. soft,tender.Bowel sounds hypoactive.Up inchair,ambulated in talbert without any difficulties.Denies pain.Willreassess.This note was completed by: Yennifer Haider RN [facility] NURSING PROG HNO ID: [id number] thor: Blake RecioRn) Jeremy, RNService: (none)Author Type: Registered NurseType: Nursing Progress NoteFiled: 06/11/2018 2:45 AMNote Text: Nursing Progress NotePatient Name: Maria Dolores PhillipMRN: [id number] Location: [place] [address]/[id number] _Daily Note:Pt AANDOX3. Up AND ambulating, ivf running @150, denies nausea. Pt's husbandat bedside. No needs voiced at this time, will cont to [id number]: pt requesting to remove CPAP. 96% on RA. c/o pain 06/04, medicatedper jan.This note was completed by: Blake Luna RN [facility] PROGRESSon 06-11-2018 Protein HNO ID: [id number] thor: Lizett Franco: General SurgeryAuthor Type: PhysicianType: Progress NotesFiled: 06/11/2018 2:24 PMNote Text:SURGICAL SERVICES POSTOP PROGRESS NOTESubjectiveNo acute events overnight.Current hospital medications:0.9% NaCl 2-10 mL 2-10 mL INTRAVENOUS q 12 Hscopolamine 1 mg over 3 days 1 Patch (TRANSDERM-SCOP) 1 Patch TRANSDERMALq 72 HR[START ON 06/13/2018] scopolamine - REMOVE PATCH OTHER q 72 HRscopolamine - VERIFY patch OTHER q 8 Hlevothyroxine 112 mcg tab(s) (SYNTHROID) 112 mcg ORAL DAILY (6 AM)simvastatin 40 mg tab(s) (ZOCOR) 40 mg ORAL AT BEDTIMEvenlafaxine ER 150 mg cap(s) (EFFEXOR XR) 150 mg ORAL DAILYlactated ringers infusion 150 mL/hr INTRAVENOUS CONTINUOUSondansetron (PF) 4 mg injection (ZOFRAN) 4 mg INTRAVENOUS q 6 HHYDROmorphone 0.2 mg injection (DILAUDID) 0.2 mg INTRAVENOUS q 3 H PRNoxyCODONE IR 5-10 mg tab(s) (ROXICODONE) 5-10 mg ORAL q 4 H PRNdextrose 40 % 15 g 15 g ORAL PRNglucagon 1 mg injection (GLUCAGEN) 1 mg INTRAMUSCULAR PRNdextrose 50% in water 25 mL syringe 12.5 g INTRAVENOUS PRNenoxaparin 40 mg injection (LOVENOX) 40 mg SUBCUTANEOUS q 12 HRinsulin lispro injection (rapid acting) (HumaLOG) SUBCUTANEOUS w MEALSinsulin lispro injection (rapid acting) (HumaLOG) SUBCUTANEOUS AT BEDTIMEacetaminophen 1,000 mg CUP (TYLENOL) 1,000 mg ORAL q 6 Hpantoprazole 40 mg CUP (PROTONIX) 40 mg ORAL BID AC (0600/1600)ObjectivePHYSICAL EXAM:BP 134/87 Pulse 99 Temp (Src) 99.3 (Oral) Resp 20 Ht 5' 6 (1.68m) Wt 238 lb (108.0kg) SpO2 95% BMI 38.43 kg/(m2).General: NADAbd: soft, non-distended, incisions c/d/I, appropriate monalisa-incisionaltendernessDATA :Diagnostic tests reviewed for today's visit:Most recent labs and imaging results.Assessment/PlanPatien t Active Hospital Problem List: Morbid obesity (HCC) (05/10/2018)Medication and Non-Pharmacologic VTE Prophylaxis/AnticoagulantsAnt icoagulant AND Antiplatelet Medications Start Dose Route Frequency Ordered Stop 06/10/18 1900 enoxaparin 40 mg injection (LOVENOX) (Surgical High Risk) 40 mg SUBCUTANEOUS EVERY 12 HOURS 06/10/18 1543 --06/10/18 1545 pneumatic compression stockings (sc,oh)06/10/18 1545 activity - mobilize patient (sc,oh)06/10/18 0930 pneumatic compression stockings (sc,oh)37F who is now POD1 s/p LRYGB. Doing well.Phase 2 diet, IVFPO pain regimen w/ IVBTNausea controlNo foleys/p monalisa-op abxlovenox, IPCs, OOB and ambulate as able for DVT ppxdispo: d/c home todaySTAFFDoing well, no issues, tolerating clearsOK for d/c homeStacy Marlen Torres MD [facility] PT EDon 06-11-2018 PT ED HNO ID: [id number] thor: Shena (Diet-T) Chriservice: Nutrition TherapyAuthor Type: Dietetic TechnicianType: Patient EducationFiled: 06/11/2018 1:35 PMNote Text:NUTRITION PATIENT EDUCATIONTOPIC: Survival Skills: DietPATIENT NAME: Maria Dolores PhillipMRN: [id number] DATE: June 11, 2018Diagnosis: ADULT: ObesityREADINESS TO LEARNMotivation to Learn: InterestedFamily Support: High - Very involved in pt careInstruction Provided to: Patient and family memberFactors Affecting Learning: NonePhysical Limitations Affecting Learning: NoneLEARNING RESPONSEPatient / Family Response: Verbalizes understanding of NutritionGuidelines after Weight Loss Surgery: Diet phases and complicationprevention, foods to avoid, allowed foods and the importance of adequateprotein and fluid intake.Method of Instruction: Written instruction - handoutsVerbal instructionInstructional Aids Used: NASupplemental Material Provided to Patient: Bariatric Surgery PostOperative CareCurrently tolerating clear liquids.Referral (Recommendation): Nutrition - OutpatientMNT Billing Type: Routine Care/15 min 2 denia De Paz-tPager: [phone] [phone] PM [facility] Phosphoruson 06-11-2018 Phosphate 2.8 mg/dL Normal 2.5-4.5 [facility] Comment on above: Performed By: #### C BCDIF, BMP, MG1, PHOS ####[facility] [place], [place] [phone] ANES Pretty 06-10-2018 ANES POST HNO ID: [id number] thor: Hamlet Slaterice: AnesthesiologyAuthor Type: AnesthesiologistType: Anesthesia PostOpFiled: 06/10/2018 3:16 PMNote Text:POST ANESTHESIA EVALUATION NOTESERVICE DATE: 06/10/2018SERVICE TIME: 1507DOB: 1980Vitals: 06/10/1813Temp: 36.2 ?C (97.2 ?F) 36.9 ?C (98.4 ?F) 06/10/1814BP: 141/82 134/82 132/84 127/83 06/10/1814Pulse: 101 102 107 108 06/10/1814Resp: 24 24 22 21 06/10/1814SpO2: 99% 98% 95% 95%Validated Vital Signs: YesPOST ANES STATUS: No apparent anesthetic complications. The patient isappropriately hydrated with stable respiratory and cardiovascular status.Patient has safe and adequate airway control. The patient has appropriatepain relief and no significant post operative nausea or vomiting. Thepatient has achieved baseline mental status.Further assessment by Anesthesia Service: NoneOther Remarks:SIGNATURE: Hamlet Barbosa MD PATIENT NAME: Maria Dolores PhillipDATE: June 10, 2018 : 3:16 PM PAGER/CONTACT #: [phone] [facility] ANES PREOPon 06-10-2018 ANES PREOP HNO ID: [id number] thor: Hamlet F VeberService: AnesthesiologyAuthor Type: AnesthesiologistType: Anesthesia PreOpFiled: 06/10/2018 10:38 AMNote Text:REGIONAL ANESTHESIOLOGY DAY OF SURGERY NOTEPATIENT NAME: Maria Dolores PhillipMRN: [id number]: 1980Procedure(s) (LRB):LAPAROSCOPIC GASTRIC RESTRICTIVE SURG W/ BYPASS AND HILARIO-EN-Y [facility] BRIEF OP NOTon 06-10-2018 BRIEF OP NOT HNO ID: [id number] thor: Katt Suh (Fel)ervice: General SurgeryAuthor Type: FellowType: Brief Op NoteFiled: 06/10/2018 1:41 PMNote Text: BRIEF OPERATIVE NOTEBARIATRIC AND METABOLIC INSTITUTELOG ID: [id number]/PROCEDURE DATE: 06/10/2018INCISION/PROCEDURE START TIME: 11:52 AMINCISION CLOSE/PROCEDURE END TIME: 1:38 PMSURGEON(S) AND CITY ROUTE DRIVER(S):Surgeon(s) and Role: * Lizett Torres - Primary * Devin Puckett - Resident - Assisting * Katt Beard (Fel) - FellowNo Additional StaffPROCEDURES AND ANESTHESIA:Procedure(s) and Anesthesia Type: * LAPAROSCOPIC GASTRIC RESTRICTIVE SURG W/ BYPASS AND HILARIO-EN-Y [facility] CNDSon 06-10-2018 CNDS HNO ID: [id number] thor: Devin (Karan) Haileervice: General SurgeryAuthor Type: ResidentType: Discharge SummariesFiled: 06/11/2018 2:35 PMNote Text:DISCHARGE SUMMARYPATIENT NAME: Maria Dolores Phillip ADMISSION DATE: 06/10/2018MRN: [id number] DISCHARGE DATE: 06/11/2018Attending: Lizett TorresReason for Hospitalization: Morbid obesityPrincipal Problem: Morbid obesity (HCC)Resolved Problems: * No resolved hospital problems. *Operations During Hospitalization: Procedure(s) and Anesthesia Type: * LAPAROSCOPIC GASTRIC RESTRICTIVE SURG W/ BYPASS AND HILARIO-EN-Y [facility] NURSING PROGon 06-10-2018 NURSING PROG HNO ID: [id number] thor: Yennifer (Sweetie) SHERMAN Haiderervice: (none)Author Type: Registered NurseType: Nursing Progress NoteFiled: 06/10/2018 4:55 PMNote Text: Nursing Progress NotePatient Name: Maria Dolores PhililpMRN: [id number] Location: [facility]/[id number] _Daily Note:Up to bathroom and voided a large amt. of urine.Ambulated inhall with very little assistance.C/o pain-medicated with good relief.This note was completed by: Yennifer Haider RN [facility] NURSING PROG HNO ID: [id number] thor: Yennifer Morocho) Garret Haider: (none)Author Type: Registered NurseType: Nursing Progress NoteFiled: 06/10/2018 4:16 PMNote Text: Nursing Progress NotePatient Name: Maria Dolores PhillipMRN: [id number] Location: /BP-[id number]-79 _Daily Note:IV infusing as ordered.Alert and oriented.Abd. distended butsoft.Has 5 lap sites-no drainage.C/o pain-medicated with good relief.This note was completed by: Yennifer Haider RN [facility] NURSING PROG HNO ID: [id number] thor: Jihan Morocho) Garret Hanks: NursingAuthocorina Type: Registered NurseType: Nursing Progress NoteFiled: 06/10/2018 3:47 PMNote Text: Nursing Progress NotePatient Name: Maria Dolores PhillipMRN: [id number] Location: [facility] OR POOL/[facility] OR POOL Daily Note:1351 Pt to PACU. Report at bedside per AA AND AA student. Pt sleeping. Respeven and unlabored. VSS. Abd with puncture sites X6 with adhesive closuredANDI. IV patent. Scopolamine patch noted behind left ear. PAS applied. Icepack applied.1400 Pt awakens briefly to stimuli, but remains very sleepy. Denies pain.1500 Pt fully awake, VSS. c/o pain 06/04. IV Toradol given. Dr Barbosa calledfor post-op clearance.1515 Pt states relief from IV Toradol. Resting in bed. Report called to3A[address] Barbosa at bedside for clearance.1530 Pt off unit via bed with transport to [id number] note was completed by: Jihan Hanks RN [facility] NURSING PROG HNO ID: [id number] thor: Yoana RecioRn) SHERMAN Valderramaervice: Vascular SurgeryAuthor Type: Registered NurseType: Nursing Progress NoteFiled: 06/10/2018 1:31 PMNote Text: Nursing Progress NotePatient Name: Maria Dolores Hopkins RigoMRN: [id number] Location: [facility] OR POOL/[facility] OR POOL Daily Note: Pt's family was updated at 1331 on the status of surgery, viathe family paging system.This note was completed by: Yoana Valderrama RN [facility] NURSING PROG HNO ID: [id number] thor: Anjel Morocho) Donnie Limaice: (none)Author Type: Registered NurseType: Nursing Progress NoteFiled: 06/10/2018 12:20 PMNote Text: Nursing Progress NotePatient Name: Maria Dolores Hopkins RigoMRN: [id number] Location: [facility] OR POOL/[facility] OR POOL Family updated at start of surgery and updated throughout surgeryThis note was completed by: Anjel Lima RN [facility] OPERATIVE NOon 06-10-2018 OPERATIVE NO HNO ID: [id number] thor: Lizett TorresService: General SurgeryAuthor Type: PhysicianType: Operative ReportFiled: 06/10/2018 4:53 PMNote Text:OPERATIVE/PROCEDURE REPORTLOG ID: [id number]/Procedure Date: 06/10/2018Incision/Procedure Start Time: 11:52 AMIncision Close/Procedure End Time: 1:38 PMSurgeon(s)/Proceduralist(s) and Sample Maker(s):Surgeon(s) and Role: * Lizett Torres - Primary * Devin Puckett - Resident - Assisting * Katt Beard (Fel) - FellowPlease note due to the complex nature of this advanced laparoscopicprocedure, Dr. Beard's presence was requested, as there were no capableavailable residents.Procedure(s):- Laparoscopic Hilario en Y gastric bypass- EGD-TAP blocksAnesthesia: GeneralPre-Op/Pre-Procedure Diagnosis:- Morbid obesity with a BMI of 38 and weight related comorbiditiesincluding T2DM, HTNPost-Op/Post-Procedure Diagnosis:- SameOperative Indication:Maria Dolores Phillip is a 37 y/o patient who was evaluted at [facility] for management of morbid obesity andweight related comorbidities including HTN, T2DM. The patient wasconsidered a good candidate for bariatric surgery.Operative Findings:- Operation completed laparoscopically. 150 cm antecolic-antegastric Rouxlimb, 50 cm biliopancreatic limb, and 15 mL gastric pouch.- Endoscopic leak test performed and negativeOperative Procedure:Informed consent was obtained. The patient was taken to the main operatingroom and a identified by name, MRN, and date of . A sign in huddlewas done. The patient was then placed under general anesthesia. Theabdomen was prepped and draped in a sterile fashion. A Veress needle wasused to establish pneumoperitoneum through a left upper quadrant incision.A 5-mm optical trocar was placed through the same incision and visualaccess to the peritoneal cavity was obtained. Remaining trocars wereplaced in the standard position under direct vision. Bilateral TAP blockswere placed using Exparel and Marcaine. The ligament of Treitz was easilyidentified and the small bowel divided 50 cm distal to the ligament ofTreitz. A contreras load of the stapler was used to divide the bowel and thenthe mesentery was divided with the Ligasure device. The Hilario limb wasmarked with a suture. A 150 cm Hilario limb was measured and approximated tothe end of the biliopancreatic limb. Adjacent enterotomies were createdwith harmonic scalpel and a contreras load of the stapler was used to create xrjax-wq-rzdh anastomosis. The common opening was closed with a transversefiring of the stapler and reinforcement stitches were placed at both endsof the anastomosis. The mesenteric defect was closed with running 2-0Surgidac suture. The omental split was then completed with the Ligasure.The liver retractor was placed. The patient was put in steep reverseTrendelenburg position and the pars flaccida was opened. The lesseromentum was then divided with the Ligasure device and the purple loads ofthe stapler were used to create a proximal gastric pouch up to the angleof His. The pouch was mobilized off of the left lois of the diaphragm andthe upper one-third of the pouch was oversewn with imbricating suture of2-0 Surgidac. Once this was completed, the Hilario limb was brought up in theantecolic-antegastric position sewn to the posterior gastric pouch withrunning 2-0 Surgidac suture. Adjacent enterotomy and gastrotomy werecreated with hook cautery and the purple load of the stapler was used tocreate a 1.5 cm linear stapled anastomosis. The common opening was closedwith a running 2-0 Polysorb suture. Prior to completion, the endoscope wasadvanced and the tip positioned in the Hilario limb.The running stitch wasthen tied down over an endoscope and an anterior layer was constructedusing 2-0 Surgidac to complete the 2-layer anastomosis. The bowel clampwas placed on the Hilario limb. The endoscope was used to provide airinsufflation and a leak test was performed, which was negative for any airleaks and the endoscopic view was normal. The mesenteric defect was thenclosed behind the Hilario limb and approximated the Hilario limb mesentery tothe mesocolon up to the gastric remnant. The omentum was then sewnanteriorly over the gastrojejunostomy. The 12-mm trocar sites were closedwith #0 Vicryl suture using the Delfino-Lakisha suture passer and thefinal inspection for hemostasis was good. Sponge and needle counts werecorrect. The trocars were removed under direct vision and the abdomendesufflated. Fascial sutures were tied down. Skin incisions were closedwith 4-0 Monocryl. Dressings were applied. The patient tolerated theprocedure well, was awakened, extubated in the operating room, and takento recovery room in stable condition.Estimated Blood Loss: 25 mlsSpecimens:- NoneImplantable Devices: NoneDrains:- NoneComplications: Noneresident performed the JJ and the fellow performed portions of the GJ ,under direct supervision and the remainder of the procedure was performedby the primary surgeon/proceduralist with assistance. Dr. Torres wasscrubbed the entire case.SIGNATURE: Lizett Torres MD PATIENT NAME: Maria Dolores PhillipDATE: June 10, 2018 : 4:51 PM PAGER/CONTACT #: [facility] PROGRESSon 06-10-2018 Protein HNO ID: [id number] thor: Alisa (Res) OrtegaService: General SurgeryAuthor Type: ResidentType: Progress NotesFiled: 06/10/2018 6:08 PMNote Text:Bariatric Post-Op CheckSubjective:Pain control: Yes, there is moderate epigastric discomfort.Nausea: Yes Vomit: NoDenies CP, SOB, palpitations, dizzinessObjective:BP 133/81 Pulse 111 Temp 37.4 ?C (99.4 ?F) (Oral) Resp 18 Ht167.6 cm (5' 6 ) Wt 108 kg (238 lb) SpO2 94% BMI 38.41 kg/m?General: no acute distress, alert, orientedCV: RRRPulm: non-labored breathing on RA, clear to ausculationAbdomen: soft, appropriately tender, incisions c/d/iTubes/Drains: n/aFoley: n/aAssessment/Plan: 37 year old female, POD#0 s/p RYGB, hemodynamicallystable with adequate postoperative pain control.-Continue routine post-op care-Nausea control. [facility] PT EDon 06-10-2018 PT ED HNO ID: [id number] thor: Genet (Rn) Shelbi, RNService: (none)Author Type: Registered NurseType: Patient EducationFiled: 06/10/2018 9:35 AMNote Text:PATIENT EDUCATION TOPIC: PROCEDURE / SURGERY: Pre-op Teaching:LogisticsPATIENT NAME: Maria Dolores PhillipMRN: [id number] LOCATION: [facility] POOL/[facility] TO LEARNCOGNITIVE ABILITY: Alert and orientedMOTIVATION TO LEARN: EagerFAMILY SUPPORT: None - Unavailable/disinterestedINST RUCTION PROVIDED TO: PatientPATIENT LEARNS BEST BY: Verbal InstructionFACTORS AFFECTING LEARNING: NonePHYSICAL LIMITATIONS AFFECTING LEARNING: NoneLEARNING RESPONSEDIAGNOSIS: ADULT: Well AdultPATIENT/FAMILY RESPONSE: Information received as demonstrated byinterest and questionsMETHOD OF INSTRUCTION: Individual instructionFOLLOW-UP PLAN: Patient instructed to call with any further issuesINSTRUCTIONAL AIDS USED: NASUPPLEMENTAL MATERIAL PROVIDED TO PATIENT: NoneREFERRAL (RECOMMENDATION): NoneElectronically Signed By: Genet Mario RN [facility] Type and SCR (30D)on 018 ABO/RH(D) Positive [facility] Comment on above: Performed By: #### T SCR30 ####[facility] [place], [place] [phone] Antibody Screen Negative [facility] Comment on above: Performed By: #### T SCR30 ####[facility] [place], [place] [phone] HOSPon 05-10-2018 HOSP Patient:Wes Phillip dre LMRN: Height:5' 6.26 (1.683 m)Weight:240 lb (108.863 kg)Outpatient Medications as of 06/10/18:dulaglutide (TRULICITY) 1.5 mg/ 0.5 ml subcutaneous pen injectorOmeprazole (PRILOSEC) 40 mg capsulescopolamine (TRANSDERM-SCOP) 1 mg over 3 daysondansetron orally disintegrating (ZOFRAN ODT) 4 mg disintegrating tabletoxyCODONE (ROXICODONE) 5 mg/5 mL oral solutionFenofibrate (LOFIBRA) 160 mg tablethydroCHLOROthiazide (HYDRODIURIL, ESIDRIX) 25 mg tabletlevothyroxine (SYNTHROID) 112 mcg tabletVICTOZA 3-CARI 0.6 mg/0.1 mL (18 mg/3 mL) pnijlisinopril (ZESTRIL, PRINIVIL) 20 mg tabletmetFORMIN (GLUCOPHAGE) 1,000 mg tabletUNIFINE PENTIPS 31 gauge x 02/08 ndlepotassium citrate ER (UROCIT-K) 10 mEq (1,080 mg) TbERrosuvastatin (CRESTOR) 5 mg tabletvenlafaxine XR (EFFEXOR XR) 150 mg 24 hr capsuleAdmission/Clinic Administered Medications as of 06/10/18:0.9% NaCl 2-10 mLheparin 5,000 Units injectionceFAZolin iv piggyback 2 g in D5W (iso-osmotic) 100 mL (ANCEF)scopolamine 1 mg over 3 days 1 Patch (TRANSDERM-SCOP)scopolamine - REMOVE PATCHscopolamine - VERIFY patchlactated ringers infusionmeperidine (PF) 12.5 mg injection (DEMEROL)albuterol 2.5 mg /3 mL (0.083 %) 2.5 mg (PROVENTIL)fentaNYL 50 mcg/mL 50 mcg injection (SUBLIMAZE)meperidine (PF) 25 mg injection (DEMEROL)ketorolac 30 mg injection (TORADOL)ondansetron 4 mg tab(s) (ZOFRAN)ondansetron (PF) 4 mg injection (ZOFRAN)prochlorperazine 10 mg injection (COMPAZINE)labetalol 5 mg injection (NORMODYNE)Problem List:Obesity, Class II, BMI 35.0-39.9, with comorbidity (see actual BMI) [E66.9]Essential hypertension [I10]Morbid obesity (HCC) [E66.01]Allergies:Nubain [Nalbuphine]PenicillinDate Verified: 06/10/18Lab ValuesLab Value Units Date High LowPOTA* 4.1 mmol/L 06/06/2018 5.1 3.7HEMA* 41.3 % 06/06/2018 46.0 36.0Progress Notes (BMI MAIN):Katt Beard MD 06/06/2018 11:44 AM Signed BARIATRIC SURGERY PREOPERATIVE VISIT NOTESERVICE DATE: 06/06/2018Stvincenzo Phillip is a 37 year old female seen in Bariatric Surgery clinictoday for their final preoperative assessment.WEIGHTCurrent BMI: Body mass index is 38.43 kg/m?.Last Wt06/06/18 108.9 kg (240 lb)Planned Procedure:Laparoscopic Hilario en-Y Gastric BypassPatient Active Problem List Morbid obesity (HCC) Obesity, Class II, BMI 35.0-39.9, with comorbidity (see actual BMI) Essential hypertensionPAST MEDICAL HISTORYDiagnosis Date- Anxiety- Depression- DM (diabetes mellitus) (HCC)- GERD (gastroesophageal reflux disease)- High cholesterol- HTN (hypertension)- HypothyroidPAST SURGICAL HISTORYProcedure Laterality Date- SECTION HX x3- LAPAROSCOPIC CHOLEYCYSTECTOMY 2008- TUBAL LIGATION 2014Social HistorySubstance Use Topics- Smoking status: Never Smoker- Smokeless tobacco: Never Used- Alcohol use Not on fileALLERGIESNo Known AllergiesMEDICATIONS:Prior to Admission Medications:dulaglutide (TRULICITY) 1.5 mg/ 0.5 ml subcutaneous pen injector Inject 1.5 mgsubcutaneously once each week.Omeprazole (PRILOSEC) 40 mg capsule Take 1 capsule by mouth twice daily.scopolamine (TRANSDERM-SCOP) 1 mg over 3 days Apply 1 Patch as directed every 72hours.ondansetron orally disintegrating (ZOFRAN ODT) 4 mg disintegrating tablet Take 1tablet by mouth every 8 hours as needed.oxyCODONE (ROXICODONE) 5 mg/5 mL oral solution 1 teaspoon(s) (5 mL) every six(6)hours as needed for pain, by mouth.Fenofibrate (LOFIBRA) 160 mg tablet TAKE 1 TABLET BY MOUTH DAILY with a mealhydroCHLOROthiazide (HYDRODIURIL, ESIDRIX) 25 mg tablet Take 25 mg by mouth oncedaily.levothyroxine (SYNTHROID) 112 mcg tablet Take 112 mcg by mouth once daily.VICTOZA 3-CARI 0.6 mg/0.1 mL (18 mg/3 mL) pnij Inject 1.8 mg sub-q dailylisinopril (ZESTRIL, PRINIVIL) 20 mg tablet Take 20 mg by mouth once daily.metFORMIN (GLUCOPHAGE) 1,000 mg tablet Take 1,000 mg by mouth twice daily.UNIFINE PENTIPS 31 gauge x /16 ndle use daily with victozapotassium citrate ER (UROCIT-K) 10 mEq (1,080 mg) TbER Take 2,160 mg by mouthtwice daily.rosuvastatin (CRESTOR) 5 mg tablet Take 5 mg by mouth once daily.venlafaxine XR (EFFEXOR XR) 150 mg 24 hr capsule Take 150 mg by mouth oncedaily.No current hospital medications on file.VISIT NOTE:This patient was seen in clinic today to obtain informed consent and discuss thedetails of their upcoming operation including the appropriate expectations forperioperative and postoperative care. In addition, preoperative andpostoperative relevant prescriptions were provided and explained during thisclinic visit.The consent discussion included the risks, benefits and anticipated outcomes ofthe procedure, the risks and benefits of the alternatives to the procedure, andthe roles and tasks of the personnel to be involved.The patient had an opportunity to ask additional questions that were answered.The patient expressed that they understood.A consent form was signed today.Prescriptions were explained and provided to the patient.Postoperative VTE risk is 0.16% according to VTE Risk Calculator. Script forextended prophylaxis was not provided.Postoperative risk is 1.9% according to the Sleeve Risk Calculator.Individualized Metabolic Surgery Score is 83.8 and Gastric bypass isrecommended.Preoperative requirements:Preoperative Checklist for Bariatric SurgeryChecklist Items Completed Not CompletedPreoperative H AND P YPreoperative labs (including fasting glucose, blood typing and A1C) YPreoperative cardiac work-up (EKG / ECHO) YGI evaluation (UGI / EGD) if needed Not neededPulmonary evaluation (Patient to bring CPAP mask day of surgery) NConsult placed for difficult IV access if needed Not neededPostoperative medications prescribed YNutrition evaluation YPsychosocial evaluation YEMMI and preop videos confirmation YStop OCP's, Aspirin, Anticoagulation prior to surgery YSmoking cessation - Urine cotinine ordered if needed YPlanned post op ICU admission NSIGNATURE: Katt Beard MD, Fellow PATIENT NAME: Maria Dolores Machucavanseven Laparoscopic AND Bariatric Surgery : June 06, 2018 CSN: [id number]: 11:07 AMProgress Notes (BMI MAIN):Shruthi Estrada Ma 06/06/2018 11:09 AM SignedBody mass index is 38.43 kg/m?.Selvin Emerson DO 06/06/2018 12:37 PM SignedBARIATRIC HANDP/PRE-OPERATIVE CONSULTSERVICE DATE: 06/06/2018SERVICE TIME: 1216amPRE-OPERATIVE MEDICAL CONSULTATIONConsultation requested by Dr. Torres for an opinion regarding preoperativeevaluation for upcoming surgery . My final recommendations will becommunicated back to the requesting physician by the way of shared medicalrecord.The procedure planned is: LRYGB, 06/10/18The condition requiring this surgery is causing these symptoms:Other: obesityThe patient has following co-morbid condition(s) DiabetesHypertensionMorbid ObesityBP 149/83 (BP Site: Right Arm, BP Position: Sitting, BP Cuff Size: Large Adult) Pulse 85 Ht 168.3 cm (5' 6.26 ) Wt 108.9 kg (240 lb) BMI 38.43 kg/m?Body mass index is 38.43 kg/m?. BP 120/80MEDICATIONS AND ALLERGIES REVIEWED.Family history -Patients family history is positive for VTEPatient's Past Social histories have been reviewed with the patient, and updatedas appropriate. Please see [facility] for details.FUNCTIONAL STATUS: Run a short distance (8.00 METs)Patient's functional class is I based on self-reported physical activity.Significant Anesthesia Considerations: NonePAST MEDICAL HISTORYDiagnosis Date- Anxiety- Depression- DM (diabetes mellitus) (HCC)- GERD (gastroesophageal reflux disease)- High cholesterol- HTN (hypertension)- HypothyroidNo history of NC, COPD, asthma, peptic ulcer dx, cancer, DVT, PE, CVA, , gout,CKD and smoking history.?PAST SURGICAL HISTORYProcedure Laterality Date- SECTION HX x3- LAPAROSCOPIC CHOLEYCYSTECTOMY 2007- TUBAL LIGATION 2013No family history on file.Social HistorySubstance Use Topics- Smoking status: Never Smoker- Smokeless tobacco: Never Used- Alcohol use Not on fileCurrent Outpatient Prescriptions:dulaglutide (TRULICITY) 1.5 mg/ 0.5 ml subcutaneous pen injector Inject 1.5 mgsubcutaneously once each week.Fenofibrate (LOFIBRA) 160 mg tablet TAKE 1 TABLET BY MOUTH DAILY with a mealhydroCHLOROthiazide (HYDRODIURIL, ESIDRIX) 25 mg tablet Take 25 mg by mouth oncedaily.levothyroxine (SYNTHROID) 112 mcg tablet Take 112 mcg by mouth once daily.lisinopril (ZESTRIL, PRINIVIL) 20 mg tablet Take 20 mg by mouth once daily.metFORMIN (GLUCOPHAGE) 1,000 mg tablet Take 1,000 mg by mouth twice daily.UNIFINE PENTIPS 31 gauge x 3/16 ndle use daily with victozapotassium citrate ER (UROCIT-K) 10 mEq (1,080 mg) TbER Take 2,160 mg by mouthtwice daily.rosuvastatin (CRESTOR) 5 mg tablet Take 5 mg by mouth once daily.venlafaxine XR (EFFEXOR XR) 150 mg 24 hr capsule Take 150 mg by mouth oncedaily.Omeprazole (PRILOSEC) 40 mg capsule Take 1 capsule by mouth twice daily.scopolamine (TRANSDERM-SCOP) 1 mg over 3 days Apply 1 Patch as directed every 72hours.ondansetron orally disintegrating (ZOFRAN ODT) 4 mg disintegrating tablet Take 1tablet by mouth every 8 hours as needed.oxyCODONE (ROXICODONE) 5 mg/5 mL oral solution 1 teaspoon(s) (5 mL) every six(6)hours as needed for pain, by mouth.VICTOZA 3-CARI 0.6 mg/0.1 mL (18 mg/3 mL) pnij Inject 1.8 mg sub-q dailyNo current facility-administered medications for this visit.ALLERGIESNo Known AllergiesREVIEW OF SYSTEMS:General: No weight loss, malaise or fevers.Neuro: No history of TIA's, stroke, EMBEDDED SYSTEMS SOFTWARE DEVELOPER tumor, impaired sensorium, hemiplegia,paraplegia or quadriplegia. No neurological symptoms or problems.Respiratory: No history of current cough or dyspnea, or pneumonia in the past 6weeks. No history of respiratory/pulmonary symptoms or problems.Cardiovascular: Hypertension requiring medsGI: No history of GI symptoms or problems. No history of esophageal varices,recent ascites, or ETOH greater than 2 drinks per day.: No history of UTI in past 6 weeks. No history of renal failure. Notcurrently on or requiring dialysis. No history of symptoms or problems.GUEST RELATIONS OFFICER: No vaginal bleeding due to menopause and no abnormal vaginal discharge.,LMP: fdlmp, mayndocrine: Diabetes Mellitus on oral agentHematology: No history of bleeding or clotting disorder. No history ofhematological symptoms or problems.Oncology: No history of CA metastasis, chemo within 30 days, or radiotherapywithin 90 days. No history of oncological symptoms or problems.Psych: DepressionSkin: Negative for lesions, rash, and itching.ObjectivePHYSICAL EXAM:VITALS: BP 149/83 Pulse 85 Ht 5' 6.26 (1.68m) Wt 240 lb (108.9kg) BMI38.43 kg/(m2).Ratry-ke-Ifv Ratio =General: Alert and orientedSkin: Normal color, no rash, no lesions.HEENT: EOM, pupils equal, round and reactive.Cardiovascular: Normal S1 AND S2, no rubs, murmurs or gallops. No JVD. Pulseregular.Lungs: Normal breath sounds, no wheezes or crackles.Abdomen: Soft, non-tender, no rigidity.Extremities: No deformity, no edema or tenderness, no joint swelling orclubbing.Neurological: Normal cognition and motor skills.Pulses: Carotid and radial pulses normal +2.EKG: Date- 12/11/17normal sinus rhythm at 86 beats per minute, normal axis, normal intervals,reviewed by myself.IMPRESSION:Maria Dolores Phillip is a 37 year old female.Functional class of I Patient Active Problem List Morbid obesity (HCC) Obesity, Class II, BMI 35.0-39.9, with comorbidity (see actual BMI) Essential hypertensionPatient has the following medical conditions which may affect monalisa-operativecourseDiabetes - NIDDM, instructed to hold metformin 24 hours before surgery and thelast dose of weekly trulicity was on June 04, 2018HTN - Well controlledMorbid ObesityPatient has no clinical predictors of increased perioperative cardiovascularrisk.Patient is scheduled for a intermediate- risk procedure.Stress test:Not indicated.RCRINone - TOTAL: 0Beta-luis alberto not indicated due to low overall risk for perioperativecardiovascular event given patient history and nature of planned procedureRECOMMENDATIONS:Larissa ent instructed on the following:Take the following medications the morning of surgery with a small sip of water:Fenofibrate, levothyroxine, Crestor, and EffexorTo Stop NSAID's (e.g. Motrin,Aleve,Arthrotec etc) 7 days before surgery.To Stop Aspirin 7 days before surgery and should hold lisinopril andhydrochlorothiazide on the day of surgeryAccucheck on arrival, Accucheck on arrival, if > 160, suggest beginning [id number] units on the evening of surgery with a goal for the accuchecks of 80-150.Also begin regular insulin (correction scale 1) every 6 hours. If started onlantus, consider discharging on an oral mediciation if the 24 hour amount ofbasal insulin given is < 30 units. If basal insulin > 30 units in 24 hours,suggest discharging on the amount given over 24 hours with careful monitoring ofthe accuchecks both fasting and 2 hours after meals. If the fasting blood sugaris consistently under 80, should reduce the dose of the oral medication (if onmetformin) or reduce the dose of the lantus by 2 units if the reading is under80. If patient is discharged on no medications for diabetes, should call PCP ifthe random readings are >/= 200, FBS's >120, and 2 hour postprandial readings >160. VTE prophylaxis, Early ambulation, Post operative incentive spirometry and Seeimpression area for disease specific recommendationsLabs Reviewed and acceptable.This patient is optimally prepared for surgery. Lab Value Units Date High Low HB No results within date range. HCT No results within date range. WBC No results within date range. PLT No results within date range. NA No results within date range. K No results within date range. GLUC No results within date range. BUN No results within date range. CREAT No results within date range. PTSEC No results within date range. INR No results within date range. APTT No results within date range. ALT No results within date range. AST No results within date range. TBILI No results within date range. TSH No results within date range. Lab Value Units Date High Low HCGQT No results within date range. UHCG No results within date range. HCG, BODY* No results within date range.SIGNATURE: Selvin Emerosn DO PATIENT NAME: Maria Dolores PhillipDATE: June 06, 2018 : 12:15 PM PAGER/CONTACT #: [facility] Vital Signs Date Time Vital Sign Value Performing Clinician Facility 11-11-2024 14:00-0500 Body height 167.6 cm Atiya Wright DIRECTOR OF SOLUTIONS ARCHITECTURE Work Phone: [facility] 11-11-2024 14:00-0500 Body mass index (BMI) [Ratio] 34.93 kg/m2 Atiya Wright DIRECTOR OF SOL[employer]IONS [employer]CH[employer]ECTURE Work Phone: [facility] 11-11-2024 14:00-0500 Body temperature 98.2 [degF] Atiya Wright DIRECTOR OF SOL[employer]IONS ARCH[employer]ECTURE Work Phone: [facility] 11-11-2024 14:00-0500 Body weight 98.16 kg Atiya Wright DIRECTOR OF SOL[employer]IONS ARCH[employer]ECTURE Work Phone: [facility] 11-11-2024 14:00-0500 Diastolic blood pressure 78 mm[Hg] Atiya Wright DIRECTOR OF SOL[employer]IONS [employer]CH[employer]ECTURE Work Phone: [facility] 11-11-2024 14:00-0500 Heart rate 89 /min Atiya Wright DIRECTOR OF [employer]IONS [employer] Work Phone: [facility] 11-11-2024 14:00-0500 SaO2% (BldA) [Mass fraction] 98 % Atiya Wright DIRECTOR OF [employer]IONS [employer] Work Phone: [facility] 11-11-2024 14:00-0500 Systolic blood pressure 138 mm[Hg] Atiya Wright DIRECTOR OF SOL[employer]IONS ARCH[employer]ECTURE Work Phone: [facility] 11-05-2024 13:09-0500 Body height 167.6 cm Atiya Wright DIRECTOR OF SOL[employer]IONS [employer]CH[employer]URE Work Phone: [facility] 11-05-2024 13:09-0500 Body mass index (BMI) [Ratio] 34.7 kg/m2 Atiya Wright DIRECTOR OF [employer]IONS [employer]CH[employer] Work Phone: [facility] 11-05-2024 13:09-0500 Body temperature 98.2 [degF] Atiya Wright DIRECTOR OF [employer] Work Phone: [facility] 11-05-2024 13:09-0500 Body weight 97.52 kg Atiya Wright DIRECTOR OF [employer] Work Phone: [facility] 11-05-2024 13:09-0500 Diastolic blood pressure 96 mm[Hg] Atiya Wright DIRECTOR OF [employer] Work Phone: [facility] 11-05-2024 13:09-0500 Heart rate 84 /min Atiya Wright DIRECTOR OF [employer] Work Phone: [facility] 11-05-2024 13:09-0500 SaO2% (BldA) [Mass fraction] 98 % Atiya Wright DIRECTOR OF [employer] Work Phone: [facility] 11-05-2024 13:09-0500 Systolic blood pressure 124 mm[Hg] Atiya Wright DIRECTOR OF [employer]IONS [employer]CH[employer]URE Work Phone: [facility] 12-21-2023 11:02-0500 Body height 170.2 cm Shayy Alvarenga PA Work Phone: [facility] 12-21-2023 11:02-0500 Body mass index (BMI) [Ratio] 32.95 kg/m2 Shayy Alvarenga PA Work Phone: [facility] 12-21-2023 11:02-0500 Body temperature 98.01 [degF] Shayy Alvarenga PA Work Phone: [facility] 12-21-2023 11:02-0500 Body weight 95.44 kg Shayy Alvarenga PA Work Phone: [facility] 12-21-2023 11:02-0500 Diastolic blood pressure 78 mm[Hg] Shayy Alvarenga PA Work Phone: [facility] 12-21-2023 11:02-0500 Heart rate 68 /min Shayy Alvarenga PA Work Phone: [facility] 12-21-2023 11:02-0500 SaO2% (BldA) [Mass fraction] 99 % Shayy Alvarenga PA Work Phone: [facility] 12-21-2023 11:02-0500 Systolic blood pressure 126 mm[Hg] Shayy Alvarenga PA Work Phone: [facility] 01-14-2023 02:15-0500 Diastolic blood pressure 83 mm[Hg] Toño Yony [facility] 01-14-2023 02:15-0500 Heart rate 76 /min Toño Yony [facility] 01-14-2023 02:15-0500 Mean blood pressure 97 mm[Hg] Toño Yoyn [facility] 01-14-2023 02:15-0500 SaO2% (BldA) [Mass fraction] 96 % Toño Yony [facility] 01-14-2023 02:15-0500 Systolic blood pressure 126 mm[Hg] Toño Yony [facility] 01-14-2023 01:28-0500 Diastolic blood pressure 72 mm[Hg] Toño Yony [facility] 01-14-2023 01:28-0500 Heart rate 73 /min Toño Yony [facility] 01-14-2023 01:28-0500 Mean blood pressure 86 mm[Hg] Toño Yony [facility] 01-14-2023 01:28-0500 Respiratory rate 16 /min Toño Yony [facility] 01-14-2023 01:28-0500 SaO2% (BldA) [Mass fraction] 97 % Toño Yony [facility] 01-14-2023 01:28-0500 Systolic blood pressure 113 mm[Hg] Toño Bhakta [facility] 01-14-2023 00:20-0500 gluc 105 mg/dL Toño Bhakta [facility] 01-14-2023 00:20-0500 gluc Toñokeya Bhakta [facility] 01-14-2023 00:10-0500 Body temperature 98.24 [degF] Toñokeya Bhakta [facility] 01-14-2023 00:10-0500 Diastolic blood pressure 105 mm[Hg] Toño Bhakta [facility] 01-14-2023 00:10-0500 Heart rate 98 /min Toño Bhakta [facility] 01-14-2023 00:10-0500 Respiratory rate 20 /min Toñokeya Bhakta [facility] 01-14-2023 00:10-0500 SaO2% (BldA) [Mass fraction] 99 % Toño Bhakta [facility] 01-14-2023 00:10-0500 Systolic blood pressure 165 mm[Hg] Toño Bhakta [facility] 03-08-2022 08:58-0400 Blood Pressure Location Isabell CABRERA [facility] 03-08-2022 08:58-0400 Body temperature 97.7 [degF] Isabell CABRERA [facility] 03-08-2022 08:58-0400 Diastolic blood pressure 70 mm[Hg] Isabell CABRERA [facility] 03-08-2022 08:58-0400 Heart rate 70 /min Isabell CABRERA [facility] 03-08-2022 08:58-0400 SaO2% (BldA) [Mass fraction] 98 % Isabell CABRERA [facility] 03-08-2022 08:58-0400 Systolic blood pressure 124 mm[Hg] Isabell CABRERA [facility] Encounters Encounter Date Encounter Type Care Provider Facility Start: 11-11-2024 End: 11-11-2024 Bamboo flowsheet Atiya Wright DIRECTOR OF SOLUTIONS ARCHITECTURE Work Phone: [facility] Start: 11-11-2024 End: 11-11-2024 Bamboo flowsheet Atiya Wright DIRECTOR OF SOL[employer]IONS ARCHITECTURE Work Phone: [facility] Start: 11-11-2024 End: 11-11-2024 Office outpatient visit 25 minutes Atiya Wright DIRECTOR OF [employer]IONS [employer]CHITECTURE Work Phone: [facility] Comment on above: Lip swelling (Primar y Dx); Cheilitis; Essential hypertension (CMS/HCC) Start: 11-11-2024 End: 11-11-2024 ambulatory ATIYA WRIGHT Not Available Start: 11-05-2024 End: 11-05-2024 Bamboo flowsheet Atiya Wright DIRECTOR OF SOL[employer]IONS ARCHITECTURE Work Phone: [facility] Start: 11-05-2024 End: 11-05-2024 Bamboo flowsheet Atiya Wright DIRECTOR OF [employer]CH[employer]URE Work Phone: [facility] Start: 11-05-2024 End: 11-05-2024 Office outpatient visit 25 minutes Atiya Wright DIRECTOR OF [employer] Work Phone: [facility] Comment on above: Lip swelling (Primar y Dx); Screen for colon cancer; Oral herpes simplex infection; Oral lesion Start: 11-05-2024 End: 11-05-2024 ambulatory ATIYA Hutchinson KYLE Not Available Start: 09-25-2024 End: 09-25-2024 Refill Shayy CORDON Work Phone: [facility] Comment on above: Gastroesophageal ref lux disease with esophagitis without hemorrhage; Current mild episode of major depressive disorder, unspecified whether recurrent (HCC) (CMS/HCC); Prediabetes; Acquired hypothyroidism (CMS/HCC) Restless leg syndrom e Start: 08-12-2024 End: 08-12-2024 ambulatory Shayy ALVARENGA Facility:[facility] Start: 08-12-2024 End: 08-12-2024 Patient encounter procedure Shayy ALVARENGA [facility] Start: 06-23-2024 End: 06-23-2024 ambulatory SHAYY ALVARENGA Not Available Start: 01-02-2024 Telephone encounter Nik Kurtz MA [facility] Comment on above: Patient Call (Patien t Call) Start: 12-21-2023 End: 12-21-2023 Office outpatient visit 25 minutes Shayy CORDON Work Phone: [facility] Comment on above: Acquired hypothyroid ism (CMS/HCC) (Primary Dx); Essential hypertension (CMS/HCC); Prediabetes; Anxiety Start: 12-21-2023 End: 12-21-2023 ambulatory SHAYY ALVARENGA Not Available Start: 01-14-2023 End: 01-14-2023 Emergency department patient visit Toño Bhakta [facility] Start: 01-05-2023 End: 01-05-2023 Patient encounter procedure Shayy ALVARENGA [facility] Start: 11-23-2022 End: 11-23-2022 Patient encounter procedure Que ZAFAR [facility] Start: 07-17-2022 End: 07-17-2022 Patient encounter procedure Isabell CABRERA [facility] Start: 03-08-2022 End: 03-08-2022 Patient encounter procedure Isabell CABRERA [facility] Start: 03-06-2022 End: 03-06-2022 Patient encounter procedure Isabell CABRERA [facility] Start: 10-19-2020 End: 10-20-2020 Patient encounter procedure PHYLLIS BROWN Facility: Start: 12-20-2018 End: 12-20-2018 Patient encounter procedure Tiffany Quintanilla Facility:[facility] Start: 06-10-2018 End: 06-11-2018 Evaluation and management of inpatient LIZETT A [facility] Procedures Date Procedure Procedure Detail Performing Clinician Start: 08-12-2024 Mammography Shayy CORDON Work Phone: Start: 12-21-2023 Complete blood count with white cell differential, automated Shayy CORDON Work Phone: Start: 12-21-2023 Comprehensive metabolic panel Shayy CORDON Work Phone: Start: 12-21-2023 TSH W/REFLEX TO FT4 Shayy CORDON Work Phone: Start: 05-12-2023 Mammography Shayy CORDON Work Phone: Start: 11-14-2018 Extracorporeal shockwave lithotripsy of calculus of kidney Isabell CABRERA Start: 10-31-2018 Extracorporeal shockwave lithotripsy of calculus of kidney Isabell CABRERA Start: 03-15-2017 Extracorporeal shockwave lithotripsy of calculus of kidney sIabell CABRERA Start: 05-26-2015 laparoscopic tubal with cautery Isabell CABRERA Start: 01-24-2015 Lithotripsy xtrcorp shock wave Isabell CABRERA Start: 01-14-2015 Extracorporeal shockwave lithotripsy of calculus of kidney Isabell CABRERA Bypass of stomach Isabell S PETTEL Calculus in biliary tract (disorder) Isabell PORRASTTEL section Isabell SP ETTEL Cholecystectomy Isabell PORRAS TTEL Endoscopy Isabell PRIDEE L Esophagogastroduodenoscopy C aroline SPEDANIELEL Tonsillectomy Isabell PRIDE EL Plan of Treatment Date Care Activity Detail Author Start: 03-08-2028 Screening for malign ant neoplasm of cervix [facility] Start: 08-12-2025 Screening for malign ant neoplasm of breast Mammogram [facility] Start: 12-25-2024 End: 12-25-2024 Patient encounter procedure 12/25/2024 9:00 AM EST Office Visit [facility] [address] [place] [id number] Shayy Alvarenga PA [address] [place] [address] [facility] Start: 11-11-2024 End: 11-11-2024 Patient encounter procedure [facility] Comment on above: Arrived Start: 11-05-2024 End: 11-05-2024 Patient encounter procedure 11/05/2024 1:00 PM EST Office Visit [facility] CED[facility] [address] [place] [id number] Atiya Wright NP [address] [place] [address] Arrived [facility] Comment on above: Arrived Start: 07-27-2024 Influenza vaccination Influenz a Vaccine (#1) [facility] Start: 06-23-2024 End: 06-23-2024 Patient encounter procedure 06/23/2024 10:00 AM EDT Office Visit [facility] [address] [place] [id number] Shayy Alvarenga PA [address] [place] [address] [facility] Start: 05-25-2024 Influenza vaccination Influenz a Vaccine (#1) [facility] Comment on above: Postponed from 07/27 (Patient Refused) Start: 05-12-2024 Screening for malign ant neoplasm of breast Mammogram [facility] Start: 2000 Screening for malign ant neoplasm of cervix Pap Smear [facility] Start: 1979 Screening for malign ant neoplasm of colon [facility] Noninvasive colorect al cancer DNA and occult blood screening [Presence] in Stool Cologuard colon cancer screening Lab Routine Screen for colon cancer Ordered: 11/05/2024 [facility] Work Phone: Comment on above: Ordered: 11/05/2024 Immunizations Immunization Date Immunization Notes Care Provider Fa cility 03-10-2021 SARS-CoV-2 (COVID-19 ) mRNA-1273 vaccine Isabell CABRERA [facility] Comment on above: Result Comment: 2nd Vaccine Result Comment: 2nd Vaccine 02-04-2021 SARS-CoV-2 (COVID-19 ) mRNA-1273 vaccine Isabell CABRERA [facility] Comment on above: Result Comment: 1st Vaccine Result Comment: 1st Vaccine 02-29-2012 tetanus toxoid, reduced diphtheria toxoid, and acellular pertussis vaccine, adsorbed Isabell CABRERA [facility] Comment on above: Reason for Medicatio n: Other (see comment) Reason for Medicatio n: Other (see comment) NEGATED: Highlighted row has not occurred!05-16-2021 influenza virus vaccine, unspecified formulation Isabell CABRERA [facility] NEGATED: Highlighted row has not occurred!09-29-2019 influenza virus vaccine, unspecified formulation Isabell CABRERA [facility] NEGATED: Highlighted row has not occurred!03-31-2019 influenza virus vaccine, unspecified formulation Isabell CABRERA [facility] Payers Date Payer Category Payer Private Health Insurance 2021 Unknown [employer] [id number] 2021-Present [address] [place] [address] [id number] 2018 Self-pay 2017 Managed Care HMO (unspecified) [id number] 1979 Unknown [id number] 1979 Unknown [id number] 1979 Unknown [id number] 1979 Unknown [id number] 1979 Unknown [id number] 1979 Unknown [id number] 1959 Private Health Insurance [id number] Social History Date Type Detail Facility Start: 12-06-2021 End: 06-08-2023 Tobacco smoking status Never smoked tobacco (finding) [facility] Tobacco smoking status Never [facility] Start: 06-07-2023 End: 11-11-2024 Sex Assigned At Female [facility] Start: 06-08-2023 Tobacco use and exposure Smokeless tobacco non-user [facility] Start: 12-21-2023 End: 11-11-2024 Alcohol intake Lifetime non-drinker (finding) [facility] Start: 06-07-2023 End: 11-11-2024 History of Social function [facility] Within the last year , have you been afraid of your partner or ex-partner? No [facility] Are you now , , , , never or living with a partner? [facility] How often to you hav e a drink containing alcohol? Monthly or less [facility] How many standard drinks containing alcohol do you have on a typical day? 1 or 2 [facility] How often do you hav e 6 or more drinks on 1 occasion? Never [facility] Do you feel stress - tense, restless, nervous, or anxious, or unable to sleep at night because your mind is troubled all the time - these days [OSQ] Only a little [facility] (I/We) worried wheth er (my/our) food would run out before (I/we) got money to buy more. Never true [facility] Start: 12-10-2023 Alcohol Comment caffeine intak e: 1-2 cups per day [facility] Start: 1980 Sex Assigned At Not on file [facility] Functional Status Date Assessment Result Facility 01-14-2023 Functional Status N/A [facility] Clinical Notes 02-04-2021 to 11-11-2024 Atiya Wright NP - 11/11/2024 1:40 PM Caryn Wright NP - 11/05/2024 1:00 PM ESTTelephone Encounter - NERIS Zaldivar - 09/25/2024 10:36 AM EDTRadiology Note Date & Type Note Facility 11-11-2024 History of Presen t illness Narrative Images from the original note were not included. Maria Dolores Phillip is a 44 y.o. female presents with chief complaint of Immunizations (Declines at this time) and Follow-up HPI: History of Present Illness The patient presents for evaluation of dry lips and lower lip swelling. She reports experiencing severe dryness of her lips, which has led to cracking and subsequent bleeding upon awakening. She has not been using any retinoids or new chapsticks. She has not introduced any new medications recently. She is not experiencing any respiratory or swallowing difficulties. She is not on any antihypertensive medications. This condition has rendered her unable to consume salty or hot foods due to the associated discomfort. She is currently on a regimen of medication administered three times daily. She is taking vitamin C and biotin supplements. MEDICATIONS Current: Vitamin C, biotin, echinacea. MEDICATIONS: Current Outpatient Medications Medication Instructions acyclovir (ZOVIRAX) 400 mg, Oral, 3 times daily ascorbic acid (Vitamin C) 500 MG chewable tablet 1 tablet, Daily biotin 40644 MCG tablet 1 tablet, Every 24 hours desvenlafaxine (PRISTIQ) 50 mg, Oral, Daily Echinacea 650 MG capsule 1 capsule, Daily ferrous sulfate 325 mg, Daily with breakfast levothyroxine (SYNTHROID, LEVOXYL) 125 mcg, Oral, Daily before breakfast metFORMIN XR (GLUCOPHAGE-XR) 500 mg, Oral, Daily with evening meal omeprazole (PRILOSEC) 20 mg, Oral, Daily before breakfast predniSONE (DELTASONE) 40 mg, Oral, Daily rOPINIRole XL (REQUIP XL) 4 mg, Oral, Every morning SUMAtriptan (IMITREX) 25 mg, Oral, Once as needed ALLERGIES: Allergies Allergen Reactions Nalbuphine GI intolerance Naproxen Other and Unknown Penicillin G Hives Other Reaction(s): Unknown Review of Systems Medical, Surgical, Family, and Social History reviewed. General: Denies fever, chills, fatigue, [place] or weight loss/gain CV: Denies CP, palpitations or swelling in legs Resp: denies cough, SOB or wheezing GI: Denies abd pain/n/v/c/d Skin: Denies rash Neuro: Denies LH or dizziness Lower lip OBJECTIVE: Visit Vitals BP 138/78 (BP Location: Left arm, Patient Position: Sitting, BP Cuff Size: Adult) Pulse 89 Temp 98.2 F (Temporal) Ht 5' 6 Wt 216 lb 6.4 oz LMP (LMP Unknown) SpO2 98% BMI 34.93 kg/m OB Status Having periods Smoking Status Never BSA 2.14 m BP Readings from Last 3 Encounters: 11/11/24 138/78 11/05/24 (!) 124/96 06/23/24 112/76 Wt Readings from Last 3 Encounters: 11/11/24 216 lb 6.4 oz 11/05/24 215 lb 06/23/24 212 lb 6.4 oz Physical Exam Physical Exam General: alert & oriented, NAD Head: NC/AT Oral Cavity:lower lip has improved but is still swollen on the right side of the lower lip Skin: warm, dry Heart: RRR, No m/r/g, S1S2 nml Lungs: CTA b/l Musculoskeletal: normal gait Extremities: no clubbing, cyanosis or edema Neurological: nonfocal Psych: mood/affect full range Results ASSESSMENT AND PLAN: Assessment & Plan 1. Cheilitis. The lower lip remains swollen, particularly on the right side, but shows improvement compared to the previous visit. There is no evidence of an ulcer. A steroid burst will be initiated, with a dosage of 2 tablets daily for a duration of 5 days. She is advised to abstain from Aleve and ibuprofen during this period. Echinacea should be discontinued until the completion of the steroid treatment. An [id number]-xsu-wrynzwk allergy medication such as Cat, Zyrtec, or Claritin is recommended. Pepcid is prescribed for daily use, either in the morning or at night. Benadryl 50 mg is to be taken nightly. She is instructed to provide an update on her condition via the portal on Sunday morning. Blood pressure is stable. Pt is not on any medications for this. Assessment/Plan Diagnoses and all orders for this visit: Lip swelling - predniSONE (Deltasone) 20 MG tablet; Take 2 tablets (40 mg) by mouth Daily for 5 days Cheilitis Essential hypertension (CMS/HCC) Health Maintenance Due Topic Date Due Colorectal Cancer Screening Never done Influenza Vaccine (1) Never done documented in this encounter [facility] 11-05-2024 History of Presen t illness Narrative Images from the original note were not included. Maria Dolores Phillip is a 44 y.o. female presents with chief complaint of Colon Cancer Screening, Immunizations (Declines at this time. ), and Mouth Lesions (Patient reports this has been ongoing for nearly 2 weeks. ) HPI: History of Present Illness The patient is a 44-year-old female who presents for evaluation of oral lesions. She has been experiencing symptoms for approximately 2 weeks, initially presenting as a cold sore, which she typically experiences during seasonal transitions. The following day, she noticed significant lip swelling, despite no changes in her medication regimen. The condition has persisted for 2 weeks without improvement, causing severe discomfort. The lesions are located externally on her lips, which are extremely dry, cracked, and have bled at times. She reports difficulty eating due to the pain. Additionally, she experiences numbness on the inside of her mouth and at the tip of her tongue. She has not changed any of her medications. She has been on Pristiq for 3 years. She also reports rapid drying of her mouth after drinking water and the presence of crusts on her lips upon waking. She does not report any recent stress, illness, or use of antiviral medications. She initially suspected dehydration but has been maintaining adequate hydration. She does not report any associated headaches, fevers, fatigue, sore throat, or rashes. At one point, her lips appeared white and were peeling. Topical applications such as Chapstick and petroleum jelly have not provided relief. She has attempted home remedies including ice application and a baking powder-water mixture, without success. She has not taken any allergy medications. MEDICATIONS Pristiq MEDICATIONS: Current Outpatient Medications Medication Instructions acyclovir (ZOVIRAX) 400 mg, Oral, 3 times daily ascorbic acid (Vitamin C) 500 MG chewable tablet 1 tablet, Daily biotin 65865 MCG tablet 1 tablet, Every 24 hours desvenlafaxine (PRISTIQ) 50 mg, Oral, Daily Echinacea 650 MG capsule 1 capsule, Daily ferrous sulfate 325 mg, Daily with breakfast levothyroxine (SYNTHROID, LEVOXYL) 125 mcg, Oral, Daily before breakfast metFORMIN XR (GLUCOPHAGE-XR) 500 mg, Oral, Daily with evening meal omeprazole (PRILOSEC) 20 mg, Oral, Daily before breakfast rOPINIRole XL (REQUIP XL) 4 mg, Oral, Every morning SUMAtriptan (IMITREX) 25 mg, Oral, Once as needed ALLERGIES: Allergies Allergen Reactions Nalbuphine GI intolerance Naproxen Other and Unknown Penicillin G Hives Other Reaction(s): Unknown Review of Systems Medical, Surgical, Family, and Social History reviewed. General: Denies fever, chills, fatigue, OSBORNE or weight loss/gain CV: Denies CP, palpitations or swelling in legs Resp: denies cough, SOB or wheezing GI: Denies abd pain/n/v/c/d Skin: Denies rash Neuro: Denies LH or dizziness Lips bottom swollen OBJECTIVE: Visit Vitals BP (!) 124/96 (BP Location: Left arm, Patient Position: Sitting, BP Cuff Size: Large adult) Pulse 84 Temp 98.2 F (Temporal) Ht 5' 6 Wt 215 lb LMP (LMP Unknown) SpO2 98% BMI 34.70 kg/m OB Status Having periods Smoking Status Never BSA 2.13 m BP Readings from Last 3 Encounters: 11/05/24 (!) 124/96 06/23/24 112/76 12/21/23 126/78 Wt Readings from Last 3 Encounters: 11/05/24 215 lb 06/23/24 212 lb 6.4 oz 12/21/23 210 lb 6.4 oz Physical Exam Physical Exam Oral exam was performed. Lungs sound normal. General: alert & oriented, NAD Head: NC/AT Oral Cavity: MMM Skin: warm, dry Heart: RRR, No m/r/g, S1S2 nml Lungs: CTA b/l Abdomen: soft, ND/NT, BS wnl Musculoskeletal: normal gait Extremities: no clubbing, cyanosis or edema Neurological: nonfocal Psych: mood/affect full range Dry cracked tongue, swollen lip on bottom. Noted of 2 lesions on the bottom and the right side of lip Results ASSESSMENT AND PLAN: Assessment & Plan 1. Oral herpes simplex. The condition appears to be an exacerbation of oral herpes simplex, with lesions predominantly affecting the lips and causing significant dryness, cracking, and bleeding. The numbness in the tip of the tongue and inside of the mouth is also noted. The lesions typically last between 12 to 18 days. There is a possibility that it could be a reaction to some of the other medications that she is on. A prescription for Valtrex 1 g, to be taken 3 times daily for 10 days, has been issued. She is advised to apply Vaseline to the affected area and avoid sun exposure to prevent further irritation. The use of Crisco has also been suggested as a potential remedy. If there are any changes in her condition, she should inform the clinic immediately. Follow-up The patient will follow up next week on Sunday. Assessment/Plan Diagnoses and all orders for this visit: Lip swelling Screen for colon cancer - Cologuard colon cancer screening Oral herpes simplex infection - acyclovir (Zovirax) 400 MG tablet; Take 1 tablet (400 mg) by mouth in the morning and 1 tablet (400 mg) in the evening and 1 tablet (400 mg) before bedtime. Do all this for 10 days. Oral lesion Health Maintenance Due Topic Date Due Colorectal Cancer Screening Never done Influenza Vaccine (1) Never done documented in this encounter [facility] 09-25-2024 Telephone encounter Note completed [facility] 09-25-2024 Miscellaneous Notes completed documented in this encounter [facility] 09-25-2024 Telephone encounter Note completed [facility] 09-25-2024 Miscellaneous Notes completed documented in this encounter [facility] 06-26-2024 Evaluation + Plan note Future Scheduled TestsXR Abdomen 1 View 06/26/24 [facility] 01-02-2024 Telephone encounter Note Pt called back re: BW results, she said she takes the levothyroxine once daily. She was also inquiring about her A1C levels. [facility] 01-02-2024 Miscellaneous Notes Pt called back re: BW results, she said she takes the levothyroxine once daily. She was also inquiring about her A1C levels. documented in this encounter [facility] 12-21-2023 History of Presen t illness Narrative Maria Dolores Phillip is a 43 y.o. female presents with chief complaint of No chief complaint on file. HPI: HPI Pt here for 3m medication follow up SUBJECTIVE: MEDICATIONS: Current Outpatient Medications Medication Instructions ascorbic acid (Vitamin C) 500 MG chewable tablet 1 tablet, Oral, Daily biotin 31324 MCG tablet 1 tablet, Oral, Every 24 hours desvenlafaxine (PRISTIQ) 50 mg, Oral, Daily Echinacea 650 MG capsule 1 capsule, Oral, Daily ferrous sulfate 325 mg, Oral, Daily with breakfast levothyroxine (SYNTHROID, LEVOXYL) 125 mcg, Oral, Daily before breakfast metFORMIN XR (GLUCOPHAGE-XR) 500 mg, Oral, Daily with evening meal omeprazole (PRILOSEC) 20 mg, Oral, Daily before breakfast potassium bicarbonate (Klor-Con/EF) 25 MEQ effervescent tablet Oral, Daily rOPINIRole (REQUIP) 4 mg, Oral, Nightly rOPINIRole XL (REQUIP XL) 4 mg, Oral, Daily SUMAtriptan (IMITREX) 25 mg, Oral, Once as needed ALLERGIES: Allergies Allergen Reactions Nalbuphine GI intolerance Naproxen Other and Unknown Penicillin G Hives Other Reaction(s): Unknown SOCIAL HISTORY: Social History Tobacco Use Smoking status: Never Smokeless tobacco: Never Substance Use Topics Alcohol use: Never Comment: caffeine intake: 1-2 cups per day Drug use: Never Depression: Not on file REVIEW OF SYMPTOMS: General: Denies fever, chills, fatigue, OSBORNE or weight loss/gain CV: Denies CP, palpitations or swelling in legs Resp: denies cough, SOB or wheezing GI: Denies abd pain/n/v/c/d Skin: Denies rash Neuro: Denies LH or dizziness OBJECTIVE: Visit Vitals BP 126/78 Pulse 68 Temp 98 F Ht 5' 7 Wt 210 lb 6.4 oz SpO2 99% BMI 32.95 kg/m Smoking Status Never BSA 2.12 m General: alert & oriented, NAD Head: NC/AT Oral Cavity: MMM Skin: warm, dry Heart: RRR, No m/r/g, S1S2 nml Lungs: CTA b/l Abdomen: soft, ND/NT, BS wnl Musculoskeletal: normal gait Extremities: no clubbing, cyanosis or edema Neurological: nonfocal Psych: mood/affect full range ASSESSMENT AND PLAN: Assessment/Plan Problem List Items Addressed This Visit Acquired hypothyroidism (CMS/HCC) - Primary Relevant Orders Comprehensive metabolic panel (Completed) TSH W/REFLEX TO FT4 (Completed) CBC and differential (Completed) Anxiety Relevant Orders Comprehensive metabolic panel (Completed) CBC and differential (Completed) Essential hypertension (CMS/HCC) Relevant Orders Comprehensive metabolic panel (Completed) CBC and differential (Completed) Prediabetes Relevant Orders Comprehensive metabolic panel (Completed) CBC and differential (Completed) Hemoglobin A1c (Completed) documented in this encounter [facility] 01-14-2023 Evaluation + Plan note Extrac gianfranco from: Title:ED Note Author:Toño Bhakta DO Date: Headache, migraine, intracta ble (G43.919: Migraine, unspecified, intractable, without status migrainosus) Orders: diphenhydrAMINE, 25 mg = 0.5 mL, Injection, IV Push, Once, Stop date 01/14/23 0:26:00 EST, STAT, Start date 01/14/23 0:26:00 EST, 01/14/23 0:26:00 EST ketorolac, 30 mg = 1 mL, Injection, IV Push, Once, Stop date 01/14/23 0:26:00 EST, STAT, Start date 01/14/23 0:26:00 EST, 01/14/23 0:26:00 EST methylPREDNISolone, 125 mg = 2 mL, Injection, IV Push, Once, Stop date 01/14/23 0:26:00 EST, STAT, Start date 01/14/23 0:26:00 EST, 01/14/23 0:26:00 EST metoclopramide, 10 mg = 2 mL, Injection, IV Push, Once, Stop date 01/14/23 0:26:00 EST, STAT, Start date 01/14/23 0:26:00 EST, 01/14/23 0:26:00 EST Sodium Chloride 0.9% intravenous solution, Soln-IV, Misc, Once, Stop date 01/14/23 0:30:13 EST, Physician Stop, 01/14/23 0:30:13 EST Sodium Chloride 0.9% intravenous solution, 1,000 mL, Soln-IV, IV, Once, Stop date 01/14/23 0:26:00 EST, STAT, Start date 01/14/23 0:26:00 EST, Infuse over 61, minute(s) CT Head or Brain w/o Contrast Future Scheduled Tests Radiology* XR Abdomen 1 View 06/26/24 [facility]02-19-2023 Hospital Discharge instructions Patient Education 01/14/2023 02:08:32 Migraine Headache Migraine Headache A migraine headache is an intense, throbbing pain on one side or both sides of the head. Migraine headaches may also cause other symptoms, such as nausea, vomiting, and sensitivity to light and noise. A migraine headache can last from 4 hours to 3 days. Talk with your doctor about what things may bring on (trigger) your migraine headaches. What are the causes? The exact cause of this condition is not known. However, a migraine may be caused when nerves in the brain become irritated and release chemicals that cause inflammation of blood vessels. This inflammation causes pain. This condition may be triggered or caused by: Drinking alcohol. Smoking. Taking medicines, such as: ?Medicine used to treat chest pain (nitroglycerin). ? control pills. ?Estrogen. ?Certain blood pressure medicines. Eating or drinking products that contain nitrates, glutamate, aspartame, or tyramine. Aged cheeses,chocolate, or caffeine may also be triggers. Doing physical activity. Other things that may trigger a migraine headache include: Menstruation. . Hunger. Stress. Lack of sleep or too much sleep. Weather changes. Fatigue. What increases the risk? The following factors may make you more likely to experience migraine headaches: Being a certain age. This condition is more common in people who are 25 55 years old. Being female. Having a family history of migraine headaches. Being . Having a mental health condition, such as depression or anxiety. Being obese. What are the signs or symptoms? The main symptom of this condition is pulsating or throbbing pain. This pain may: Happen in any area of the head, such as on one side or both sides. Interfere with daily activities. Get worse with physical activity. Get worse with exposure to bright lights or loud noises. Other symptoms may include: Nausea. Vomiting. Dizziness. General sensitivity to bright lights, loud noises, or smells. Before you get a migraine headache, you may get warning signs (an aura). An aura may include: Seeing flashing lights or having blind spots. Seeing bright spots, halos, or zigzag lines. Having tunnel vision or blurred vision. Having numbness or a tingling feeling. Having trouble talking. Having muscle weakness. Some people have symptoms after a migraine headache (postdromal phase), such as: Feeling tired. Difficulty concentrating. How is this diagnosed? A migraine headache can be diagnosed based on: Your symptoms. A physical exam. Tests, such as: ?CT scan or an MRI of the head. These imaging tests can help rule out other causes of headaches. ?Taking fluid from the spine (lumbar puncture) and analyzing it (cerebrospinal fluid analysis, or CSF analysis). How is this treated? This condition may be treated with medicines that: Relieve pain. Relieve nausea. Prevent migraine headaches. Treatment for this condition may also include: Acupuncture. Lifestyle changes like avoiding foods that trigger migraine headaches. Biofeedback. Cognitive behavioral therapy. Follow these instructions at home: Medicines Take [id number] and prescription medicines only as told by your health care provider. Ask your health care provider if the medicine prescribed to you: ?Requires you to avoid driving or using heavy machinery. ?Can cause constipation. You may need to take these actions to prevent or treat constipation: ?Drink enough fluid to keep your urine pale yellow. ?Take hlkg-[id number]-koktpas or prescription medicines. ?Eat foods that are high in fiber, such as beans, whole grains, and fresh fruits and vegetables. ?Limit foods that are high in fat and processed sugars, such as fried or sweet foods. Lifestyle Do not drink alcohol. Do not use any products that contain nicotine or tobacco, such as cigarettes, e- cigarettes, and chewing tobacco. If you need help quitting, ask your health care provider. Get at least 8 hours of sleep every night. Find ways to manage stress, such as meditation, deep breathing, or yoga. General instructions Keep a journal to find out what may trigger your migraine headaches. For example, write down: ?What you eat and drink. ?How much sleep you get. ?Any change to your diet or medicines. If you have a migraine headache: ?Avoid things that make your symptoms worse, such as bright lights. ?It may help to lie down in a dark, quiet room. ?Do not drive or use heavy machinery. ?Ask your health care provider what activities are safe for you while you are experiencing symptoms. Keep all follow-up visits as told by your health care provider. This is important. Contact a health care provider if: You develop symptoms that are different or more severe than your usual migraine headache symptoms. You have more than 15 headache days in one month. Get help right away if: Your migraine headache becomes severe. Your migraine headache lasts longer than 72 hours. You have a fever. You have a stiff neck. You have vision loss. Your muscles feel weak or like you cannot control them. You start to lose your balance often. You have trouble walking. You faint. You have a seizure. Summary A migraine headache is an intense, throbbing pain on one side or both sides of the head. Migraines may also cause other symptoms, such as nausea, vomiting, and sensitivity to light and noise. This condition may be treated with medicines and lifestyle changes. You may also need to avoid certain things that trigger a migraine headache. Keep a journal to find out what may trigger your migraine headaches. Contact your health care provider if you have more than 15 headache days in a month or you develop symptoms that are different or more severe than your usual migraine headache symptoms. This information is not intended to replace advice given to you by your health care provider. Make sure you discuss any questions you have with your health care provider. Document Released: 11/12/2006 Document Revised: 03/05/2020 Document Reviewed: 12/25/2019 [employer] Patient Education 2020 [email or web address] Follow Up Care 01/14/2023 00:10:39 With:Shayy ALVARENGA Address: [place] [address] [facility] (1) When:01/17/2023 Comments:Call the office of your primary care doctor to arrange for follow-up within the above-stated timeframe. Follow-up with your primary care doctor about this ED visit. You should review your labs, imaging, and diagnoses from this ED visit with your primary care physician. If you were prescribed medications you should discuss possible side-effects and drug interactions with your pharmacist. Call 911 or go to the nearest Emergency Department if you develop any new or worsening symptoms.Seek immediate medical attention if you develop: worsening headache, nausea, vomiting, confusion, weakness, loss of motion in your arms or legs, loss of control of your urine or stool, difficulty waking from sleep, neck pain, fever, or any new or worsening symptoms. [facility]04-13-2022 Hospital Discharge instructions Patient Education 03/08/2022 09:39:18 BMI for Adults BMI for Adults Body mass index (BMI) is a number that is calculated from a person's weight and height. BMI may help to estimate how much of a person's weight is composed of fat. BMI can help identify those who may be at higher risk for certain medical problems. How is BMI used with adults? BMI is used as a screening tool to identify possible weight problems. It is used to check whether aperson is obese, overweight, healthy weight, or underweight. How is BMI calculated? BMI measures your weight and compares it to your height. This can be done either in [place] or metric measurements. Note that charts are available to help you find your BMI quickly and easily without having to do these calculations yourself. To calculate your BMI in [place] measurements, your health care provider will: 1.Measure your weight in pounds (lb). 2.Multiply the number of pounds by 703. For example, for a person who weighs 180 lb, multiply that number by 703, which equals 126,540. 3.Measure your height in inches (in). Then multiply that number by itself to get a measurement called inches squared. For example, for a person who is 70 in tall, the inches squared measurement is 70 in x 70 in, which equals 4900 inches squared. 4.Divide the total from Step 2 (number of lb x 703) by the total from Step 3 (inches squared): 126,540 4900 = 25.8. This is your BMI. To calculate your BMI in metric measurements, your health care provider will: 1.Measure your weight in kilograms (kg). 2.Measure your height in meters (m). Then multiply that number by itself to get a measurement called meters squared. For example, for a person who is 1.75 m tall, the meters squared measurement is 1.75 m x 1.75 m, which is equal to 3.1 meters squared. 3.Divide the number of kilograms (your weight) by the meters squared number. In this example: 70 3.1 = 22.6. This is your BMI. How is BMI interpreted? To interpret your results, your health care provider will use BMI charts to identify whether you are underweight, normal weight, overweight, or obese. The following guidelines will be used: Underweight: BMI less than 18.5. Normal weight: BMI between 18.5 and 24.9. Overweight: BMI between 25 and 29.9. Obese: BMI of 30 and above. Please note: Weight includes both fat and muscle, so someone with a muscular build, such as an athlete, may havea BMI that is higher than 24.9. In cases like these, BMI is not an accurate measure of body fat. To determine if excess body fat is the cause of a BMI of 25 or higher, further assessments may needto be done by a health care provider. BMI is usually interpreted in the same way for men and women. Why is BMI a useful tool? BMI is useful in two ways: Identifying a weight problem that may be related to a medical condition, or that may increase the risk for medical problems. Promoting lifestyle and diet changes in order to reach a healthy weight. Summary Body mass index (BMI) is a number that is calculated from a person's weight and height. BMI may help to estimate how much of a person's weight is composed of fat. BMI can help identify those who may be at higher risk for certain medical problems. BMI can be measured using [place] measurements or metric measurements. To interpret your results, your health care provider will use BMI charts to identify whether you are underweight, normal weight, overweight, or obese. This information is not intended to replace advice given to you by your health care provider. Make sure you discuss any questions you have with your health care provider. Document Released: 07/24/2005 Document Revised: 10/25/2018 Document Reviewed: 09/25/2018 [email or web address] Patient Education 2020 [email or web address] 03/08/2022 09:39:14 Living With Depression Living With Depression Everyone experiences occasional disappointment, sadness, and loss in their lives. When you are feeling down, blue, or sad for at least 2 weeks in a row, it may mean that you have depression. Depression can affect your thoughts and feelings, relationships, daily activities, and physical health. It is caused by changes in the way your brain functions. If you receive a diagnosis of depression, your health care provider will tell you which type of depression you have and what treatment options are available to you. If you are living with depression, there are ways to help you recover from it and also ways to prevent it from coming back. How to cope with lifestyle changes Coping with stress Stress is your body s reaction to life changes and events, both good and bad. Stressful situations may include: Getting . The of a spouse. Losing a job. Retiring. Having a baby. Stress can last just a few hours or it can be ongoing. Stress can play a major role in depression, so it is important to learn both how to cope with stress and how to think about it differently. Talk with your health care provider or a counselor if you would like to learn more about stress reduction. He or she may suggest some stress reduction techniques, such as: Music therapy. This can include creating music or listening to music. Choose music that you enjoy and that inspires you. Mindfulness-based meditation. This kind of meditation can be done while sitting or walking. It involves being aware of your normal breaths, rather than trying to control your breathing. Centering prayer. This is a kind of meditation that involves focusing on a spiritual word or phrase. Choose a word, phrase, or sacred image that is meaningful to you and that brings you peace. Deep breathing. To do this, expand your stomach and inhale slowly through your nose. Hold your breath for 3 5 seconds, then exhale slowly, allowing your stomach muscles to relax. Muscle relaxation. This involves intentionally tensing muscles then relaxing them. Choose a stress reduction technique that fits your lifestyle and personality. Stress reduction techniques take time and practice to develop. Set aside 5 15 minutes a day to do them. Therapists can offer training in these techniques. The training may be covered by some insurance plans. Other things you can do to manage stress include: Keeping a stress diary. This can help you learn what triggers your stress and ways to control your response. Understanding what your limits are and saying no to requests or events that lead to a schedule thatis too full. Thinking about how you respond to certain situations. You may not be able to control everything, but you can control how you react. Adding humor to your life by watching funny films or TV shows. Making time for activities that help you relax and not feeling guilty about spending your time thisway. Medicines Your health care provider may suggest certain medicines if he or she feels that they will help improve your condition. Avoid using alcohol and other substances that may prevent your medicines from working properly (may interact). It is also important to: Talk with your pharmacist or health care provider about all the medicines that you take, their possible side effects, and what medicines are safe to take together. Make it your goal to take part in all treatment decisions (shared decision- making). This includes giving input on the side effects of medicines. It is best if shared decision-making with your health care provider is part of your total treatment plan. If your health care provider prescribes a medicine, you may not notice the full benefits of it for 4 8 weeks. Most people who are treated for depression need to be on medicine for at least 6 12 months after they feel better. If you are taking medicines as part of your treatment, do not stop taking medicines without first talking to your health care provider. You may need to have the medicine slowly decreased (tapered) over time to decrease the risk of harmful side effects. Relationships Your health care provider may suggest family therapy along with individual therapy and drug therapy. While there may not be family problems that are causing you to feel depressed, it is still important to make sure your family learns as much as they can about your mental health. Having your family s support can help make your treatment successful. How to recognize changes in your condition Everyone has a different response to treatment for depression. Recovery from major depression happens when you have not had signs of major depression for two months. This may mean that you will startto: Have more interest in doing activities. Feel less hopeless than you did 2 months ago. Have more energy. Overeat less often, or have better or improving appetite. Have better concentration. Your health care provider will work with you to decide the next steps in your recovery. It is also important to recognize when your condition is getting worse. Watch for these signs: Having fatigue or low energy. Eating too much or too little. Sleeping too much or too little. Feeling restless, agitated, or hopeless. Having trouble concentrating or making decisions. Having unexplained physical complaints. Feeling irritable, angry, or aggressive. Get help as soon as you or your family members notice these symptoms coming back. How to get support and help from others How to talk with friends and family members about your condition Talking to friends and family members about your condition can provide you with one way to get support and guidance. Reach out to trusted friends or family members, explain your symptoms to them, andlet them know that you are working with a health care provider to treat your depression. Financial resources Not all insurance plans cover mental health care, so it is important to check with your insurance carrier. If paying for co-pays or counseling services is a problem, search for a local or [facility]. They may be able to offer public mental health care services at low or no cost when you are not able to see a private health care provider. If you are taking medicine for depression, you may be able to get the generic form, which may be less expensive. Some makers of prescription medicines also offer help to patients who cannot afford the medicines they need. Follow these instructions at home: Get the right amount and quality of sleep. Cut down on using caffeine, tobacco, alcohol, and other potentially harmful substances. Try to exercise, such as walking or lifting small weights. Take [id number] and prescription medicines only as told by your health care provider. Eat a healthy diet that includes plenty of vegetables, fruits, whole grains, low-fat dairy products, and lean protein. Do not eat a lot of foods that are high in solid fats, added sugars, or salt. Keep all follow-up visits as told by your health care provider. This is important. Contact a health care provider if: You stop taking your antidepressant medicines, and you have any of these symptoms: ?Nausea. ?Headache. ?Feeling lightheaded. ?Chills and body aches. ?Not being able to sleep (insomnia). You or your friends and family think your depression is getting worse. Get help right away if: You have thoughts of hurting yourself or others. If you ever feel like you may hurt yourself or others, or have thoughts about taking your own life,get help right away. You can go to your nearest emergency department or call: Your local emergency services (705 in the [place] A suicide crisis helpline, such as the National Suicide Prevention Lifeline at . Thisis open 24-hours a day. Summary If you are living with depression, there are ways to help you recover from it and also ways to prevent it from coming back. Work with your health care team to create a management plan that includes counseling, stress management techniques, and healthy lifestyle habits. This information is not intended to replace advice given to you by your health care provider. Make sure you discuss any questions you have with your health care provider. Document Released: 10/15/2017 Document Revised: 03/05/2020 Document Reviewed: 10/15/2017 [email or web address] Patient Education 2019 [place]. [facility] 03-12-2021 NotePatient Outreach (COVAMN) MARIA DOLORES PHILLIP ([id number]) 1980 F Date Time Provider Department 02/04/21 JUDY MCRAE During your visit today, we recorded the following information about you: Allergies As of Date: 02/04/2021 Noted Allergy Reaction NUBAIN (NALBUPHINE) 06/10/2018 11 - Vomiting PENICILLIN 06/10/2018 4 - Hives Date Reviewed: 09/10/2018 Reviewed by: Shruthi Estrada Ma - Fully Assessed Order(s):SARS-COVID VACCINE 1ST DOSE APPT [[id number]] Order #: [id number] FUTURE Prescriptions as of 02/04/2021 Sig: DOCUSATE SODIUM 100 MG CAPSULE Take 1 capsule by mouth twice* ACETAMINOPHEN 650 MG/20.3 ML * Take 20.3 mL by mouth every 6* FENOFIBRATE 160 MG TABLET TAKE 1 TABLET BY MOUTH DAILY * LEVOTHYROXINE 112 MCG TABLET Take 112 mcg by mouth once da* POTASSIUM CITRATE ER 10 MEQ (* Take 2,160 mg by mouth twice * ROSUVASTATIN 5 MG TABLET Take 5 mg by mouth once daily. VENLAFAXINE ER 150 MG CAPSULE* Take 150 mg by mouth once cassi* Problem List As Of Date 02/04/2021 Noted Resolved Obesity, Class II, BMI 35.0-39.9, with comorbid*12/06/2017 Essential hypertension [I10] 12/06/2017 Morbid obesity (HCC) [E66.01] 05/10/2018 More... Obesity, Class II, BMI 35-39.9, with comorbidit*06/11/2018 Encounter Status:Closed by [email or web address], [facility] on 02/07/21[facility] Evaluation + Plan note Future Appointments Appointment Date:03/08/2022 09:00:00 AM Scheduled Provider:Isabell CABRERA CNP Location:[facility] Appointment Type:FM Open Appointment Date:12/05/2022 09:45:00 AM Scheduled Provider:Camila Coughlin Jr., MD Location:[facility] Appointment Type:[facility]O [facility] Future Appointments Appointment Date:07/11/2022 09:00:00 AM Scheduled Provider:Isabell CABRERA CNP Location:[facility] Appointment Type: Open Appointment Date:12/05/2022 09:45:00 AM Scheduled Provider:Camila Coughlin Jr., MD Location:[facility] Appointment Type:URO Office Visit Future Scheduled Tests Laboratory* HgbA1c 03/10/22 * TSH With T4fr Reflex 03/08/22 * Comprehensive Metabolic Panel 03/08/22 * Lipid Panel 03/08/22 [facility] Evaluation + Plan note Future Appointments Appointment Date:07/18/2022 11:00:00 AM Scheduled Provider:Isabell CABRERA CNP Location:[facility] Appointment Type: Open Appointment Date:12/05/2022 09:45:00 AM Scheduled Provider:Camila Coughlin Jr., MD Location:[facility] Appointment Type:URO [facility] Future Appointments Appointment Date:11/24/2022 09:30:00 AM Scheduled Provider:Que ZAFAR MD Location:[facility] Appointment Type:URO [facility] Future Scheduled Tests Radiology* XR Abdomen 1 View 06/26/24 [facility] Diagnosis Acquired hypothyroidism (CMS/HCC)- Primary Unspecified hypothyroidism Essential hypertension (CMS/HCC) Unspecified essential hypertension Prediabetes Other abnormal glucose Anxiety Anxiety state, unspecified [facility] Diagnosis Restless leg syndrome- Primary Restless legs syndrome (RLS) Restless leg syndrome- Primary Restless legs syndrome (RLS) Essential hypertension (CMS/HCC) Unspecified essential hypertension Gastroesophageal reflux disease without esophagitis Esophageal reflux Anxiety Anxiety state, unspecified Reactive depression (CMS/HCC) Prediabetes- Primary Other abnormal glucose Breast cancer screening by mammogram Restless leg syndrome Restless legs syndrome (RLS) Acquired hypothyroidism (CMS/HCC) Unspecified hypothyroidism Anxiety Anxiety state, unspecified Reactive depression (CMS/HCC) Essential hypertension (CMS/HCC) Unspecified essential hypertension Gastroesophageal reflux disease with esophagitis without hemorrhage Chronic migraine with aura without status migrainosus, not intractable (CMS/HCC) Gastroesophageal reflux disease with esophagitis without hemorrhage Current mild episode of major depressive disorder, unspecified whether recurrent (HCC) (CMS/HCC) Prediabetes Other abnormal glucose Acquired hypothyroidism (CMS/HCC) Unspecified hypothyroidism [facility]* Diagnosis Restless leg syndrome- Primary Restless legs syndrome (RLS) Restless leg syndrome- Primary Restless legs syndrome (RLS) Essential hypertension (CMS/HCC) Unspecified essential hypertension Gastroesophageal reflux disease without esophagitis Esophageal reflux Anxiety Anxiety state, unspecified Reactive depression (CMS/HCC) Prediabetes- Primary Other abnormal glucose Breast cancer screening by mammogram Restless leg syndrome Restless legs syndrome (RLS) Acquired hypothyroidism (CMS/HCC) Unspecified hypothyroidism Anxiety Anxiety state, unspecified Reactive depression (CMS/HCC) Essential hypertension (CMS/HCC) Unspecified essential hypertension Gastroesophageal reflux disease with esophagitis without hemorrhage Chronic migraine with aura without status migrainosus, not intractable (CMS/HCC) Restless leg syndrome Restless legs syndrome (RLS) [facility]* Diagnosis Restless leg syndrome- Primary Restless legs syndrome (RLS) Restless leg syndrome- Primary Restless legs syndrome (RLS) Essential hypertension (CMS/HCC) Unspecified essential hypertension Gastroesophageal reflux disease without esophagitis Esophageal reflux Anxiety Anxiety state, unspecified Reactive depression (CMS/HCC) Prediabetes- Primary Other abnormal glucose Breast cancer screening by mammogram Restless leg syndrome Restless legs syndrome (RLS) Acquired hypothyroidism (CMS/HCC) Unspecified hypothyroidism Anxiety Anxiety state, unspecified Reactive depression (CMS/HCC) Essential hypertension (CMS/HCC) Unspecified essential hypertension Gastroesophageal reflux disease with esophagitis without hemorrhage Chronic migraine with aura without status migrainosus, not intractable (CMS/HCC) Lip swelling- Primary Diseases of lips Screen for colon cancer Special screening for malignant neoplasms, colon Oral herpes simplex infection Herpetic gingivostomatitis Oral lesion Other and unspecified diseases of the oral soft tissues [facility]* Diagnosis Restless leg syndrome- Primary Restless legs syndrome (RLS) Restless leg syndrome- Primary Restless legs syndrome (RLS) Essential hypertension (CMS/HCC) Unspecified essential hypertension Gastroesophageal reflux disease without esophagitis Esophageal reflux Anxiety Anxiety state, unspecified Reactive depression (CMS/HCC) Prediabetes- Primary Other abnormal glucose Breast cancer screening by mammogram Restless leg syndrome Restless legs syndrome (RLS) Acquired hypothyroidism (CMS/HCC) Unspecified hypothyroidism Anxiety Anxiety state, unspecified Reactive depression (CMS/HCC) Essential hypertension (CMS/HCC) Unspecified essential hypertension Gastroesophageal reflux disease with esophagitis without hemorrhage Chronic migraine with aura without status migrainosus, not intractable (CMS/HCC) Lip swelling- Primary Diseases of lips Cheilitis Diseases of lips Essential hypertension (CMS/HCC) Unspecified essential hypertension documented in this encounter [facility] Narrative No data available for this section [facility] No data available for this section [facility] No data available for this section [facility] Summary Purpose Family History No Family History Records FoundNo Family History Records FoundNo Family History Records FoundNo Family History Records FoundNo Family History Records Found No data available for this section No Family History Records Found Advance Directives No Advanced Directives Records FoundNo Advanced Directives Records FoundNo Advanced Directives Records FoundNo Advanced Directives Records FoundNo Advanced Directives Records FoundNo Advanced Directives Records Found Additional Source Comments INFORMATION SOURCE (unrecogn ized section and content) DATE CREATED AUTHOR 06/15/2018 [facility] DATE CREATED AUTHOR AUTHOR'S ORGANIZ ATION 01/01/2019 [facility] DATE CREATED AUTHOR AUTHOR'S ORGANIZ ATION 10/28/2020 [facility] DATE CREATED AUTHOR AUTHOR'S ORGANIZ ATION 12/29/2021 [facility] DATE CREATED AUTHOR AUTHOR'S ORGANIZ ATION 08/21/2024 [facility] DATE CREATED AUTHOR AUTHOR'S ORGANIZ ATION 11/14/2024 [facility] Care Team (unrecognized sect ion and content) Molding Manager Relationship Specialty Start Date End Date Shayy Alvarenga PA [address] [place] [address] PCP - Medical [employer] 04/26/23 Arjun Krishnamurthy MD [address] [place] [address] PCP - General Family Medicine 06/18/23 Shayy Alvarenga PA [address] [place] [address] Physician Sample Maker Family Medicine 06/18/23 Molding Manager Relationship Specialty Start Date End Date Shayy Alvarenga PA [address] [place] [address] PCP - Medical [employer] 04/26/23 Arjun Krishnamurthy MD [address] [place] [address] PCP - General Family Medicine 06/18/23 Shayy Alvarenga PA [address] [place] [address] Physician Sample Maker Family Medicine 06/18/23 Molding Manager Relationship Specialty Start Date End Date Arjun Krishnamurthy MD [address] [place] [address] PCP - General Family Medicine 06/18/23 Shayy Alvarenga PA [address] [place] [address] Physician Sample Maker Family Medicine 06/18/23 Molding Manager Relationship Specialty Start Date End Date Arjun Krishnamurthy MD [address] [place] [address] PCP - General Family Medicine 06/18/23 Shayy Alvarenga PA [address] [place] [address] Physician Sample Maker Family Medicine 06/18/23 Molding Manager Relationship Specialty Start Date End Date Arjun Krishnamurthy MD [address] [place] [address] PCP - General Family Medicine 06/18/23 Shayy Alvarenga PA [address] [place] [address] Physician Sample Maker Family Medicine 06/18/23 Molding Manager Relationship Specialty Start Date End Date Arjun Krishnamurthy MD [address] [place] [address] PCP - General Family Medicine 06/18/23 Shayy Alvarenga PA [address] [place] [address] Physician Sample Maker Family Medicine 06/18/23 Molding Manager Relationship Specialty Start Date End Date Arjun Krishnamurthy MD [address] [place] [address] PCP - General Family Medicine 06/18/23 Shayy Alvarenga PA [address] [place] [address] Physician Sample Maker Family Medicine 06/18/23 Molding Manager Relationship Specialty Start Date End Date Arjun Krishnamurthy MD [address] [place] [address] PCP - General Family Medicine 06/18/23 Shayy Alvarenga PA [address] [place] [address] Physician Sample Maker Family Medicine 06/18/23 Reason for Visit (unrecogniz ed section and content) Reason Onset Date Comments Patient Call 01/02/2024 Patient Call Reason Comments New Med Request Reason Comments Med Refill Reason Comments Colon Cancer Screening Immunizations Declines at this go e. Mouth Lesions Patient reports this has been ongoing for nearly 2 weeks. Reason Comments Immunizations Declines at this go e Follow-up FOR RECORDS PERTAINING TO PATIENTS WHO ARE OR HAVE BEEN ENROLLED IN A CHEMICAL DEPENDENCY/SUBSTANCEABUSE PROGRAM, SOME INFORMATION MAY BE OMITTED. This clinical summary was aggregated from multiple sources. Caution should be exercised in using it in the provision of clinical care. This summary normalizes information from multiple sources, and as a consequence, information in this document may materially change the coding, format and clinical context of patient data. In addition, data may be omitted in some cases. CLINICAL DECISIONS SHOULD BE BASED ON THE PRIMARY CLINICAL RECORDS. [employer] provides no warranty or guarantee of the accuracy or completeness of information in this document.
--- NOTE | 2024-12-08 18:59 | ED_ITS ---
HPI - Abdominal Pain General Chief Complaint: Abdominal Pain Stated Complaint: Abdominal Pain Time Seen by Provider: 12/08/24 18:54 Source: patient Mode of arrival: walk-in History of Present Illness HPI narrative: 44 year old female presents to the ED for right-sided abd pain, nausea, diarrhea. Onset was 0330 this morning. Denies fever, chills, injury, emesis, urinary sx. Reports hx cholecystectomy, kidney stones. Denies chance of preg liza. She is accompanied by family. Related Data Home Medications ?Medication ?Instructions ?Recorded ?Confirmed desvenlafaxine succinate 50 mg 50 mg PO 11/24/23 tablet,extended release 24 hr levothyroxine 125 mcg tablet 125 mcg 11/24/23 (Synthroid) metformin 500 mg tablet,extended 500 mg PO 11/24/23 release 24 hr omeprazole 20 mg capsule,delayed 20 mg 11/24/23 release ropinirole 4 mg tablet 4 mg 11/24/23 sumatriptan succinate 25 mg tablet 25 mg PO 11/24/23 Previous Rx's ?Medication ?Instructions ?Recorded ciprofloxacin HCl 500 mg tablet 500 mg PO BID 10 days #20 tabs 12/08/24 (Cipro) hydrocodone 5 mg-acetaminophen 325 1 tab PO Q8H PRN pain 3 days #9 12/08/24 mg tablet tabs metronidazole 500 mg tablet 500 mg PO TID 10 days #30 tabs 12/08/24 ondansetron 4 mg disintegrating 4 mg PO Q8H PRN nausea and 12/08/24 tablet vomiting #12 tabs Allergies Allergy/AdvReac Type Severity Reaction Status Date / Time naproxen Allergy Unknown Verified 12/08/24 16:50 Penicillins Allergy Unknown Verified 12/08/24 16:50 Review of Systems ROS Constitutional Denies: fever or chills Ears, nose, mouth, and throat Denies: throat pain or neck pain Cardiovascular Denies: chest pain Respiratory Denies: shortness of breath Gastrointestinal Reports: abdominal pain, nausea and diarrhea; Denies: vomiting Genitourinary Denies: painful urination, urinary frequency, urinary urgency or blood in urine Musculoskeletal Denies: back pain or neck pain Integumentary/Breast Denies: rash Neurological Denies: headache PFSH PFSH Social History Smoking status: Never smoker Little interest or pleasure in doing things: not at all Feeling down, depressed, or hopeless: not at all Exam Constitutional Vital Signs, click to edit/add: Last Vital Signs Temp 98.3 F 12/08/24 16:50 Pulse 100 H 12/08/24 16:50 Resp 16 12/08/24 16:50 BP 135/94 H 12/08/24 19:11 Pulse Ox 98 12/08/24 20:21 O2 Del Method Room Air 12/08/24 16:50 Common normals: oriented x3 General appearance: cooperative; not ill appearing Eye Common normals: conjunctivae normal and no scleral icterus Neck & C-Spine Common normals: supple Chest Chest: symmetrical chest wall rise Respiratory Common normals: normal respiratory effort Effort & inspection: able to speak in complete sentences and symmetric chest movement Auscultation: no wheezes Cardio Common normals: regular rate and regular rhythm GI Common normals: Normal to inspection, nondistended, normoactive bowel sounds present and soft to palpation Inspection: no abdominal distension Palpation: tender (RUQ>RLQ) Details: RLQ and RUQ Other: Negative obturator sign. Negative Paz sign. Neuro Common normals: oriented x3 Sensorium/orientation: awake and alert Speech: speech normal Course Vital Signs Vital signs: Vital Signs Temperature 98.3 F 12/08/24 16:50 Pulse Rate 100 H 12/08/24 16:50 Respiratory Rate 16 12/08/24 16:50 Blood Pressure 139/89 12/08/24 16:50 Pulse Oximetry 98 12/08/24 16:50 Oxygen Delivery Method Room Air 12/08/24 16:50 Temperature 98.3 F 12/08/24 16:50 Pulse Rate 100 H 12/08/24 16:50 Respiratory Rate 16 12/08/24 16:50 Blood Pressure 135/94 H 12/08/24 19:11 Pulse Oximetry 98 12/08/24 20:21 Oxygen Delivery Method Room Air 12/08/24 16:50 MDM - Abdominal Pain MDM Narrative Medical decision making narrative: WBC count was 14.2. Urinalysis was unremarkable.CT scan showed acute diverticulitis versus short appendix with appendicitis projecting from the lower lateral margin of the cecum; diverticulitis is favored. Findings were discussed with the patient. Return precautions were discussed. OARRS was reviewed. Prescriptions were provided for Zofran, Cipro, Flagyl, and [place]. Follow up with pcp for a recheck, further evaluation and treatment. Differential Diagnosis Differential diagnosis: Likely abdominal pain, acute appendicitis, calculus of kidney, constipation, diverticulitis, pancreatitis and small bowel obstruction Medical Records Attestation: I reviewed the patient's medical records. Lab Data Attestation: I reviewed the patient's lab results. Labs: Lab Results 12/08/24 12/08/24 Range/Units 19:08 19:09 WBC 14.2 H (4.0-11.0) 10^3/uL RBC 4.36 (4.20-5.40) 10^6/uL Hgb 13.2 (12.0-16.0) g/dL Hct 40.5 (36.0-48.0) % MCV 92.9 (81.0-99.0) fL MCH 30.3 (26.7-34.0) pg MCHC 32.6 (29.9-35.2) g/dL RDW 13.1 (11.0-15.0) % Plt Count 266 (150-450) 10^3/uL MPV 10.0 (9.5-13.5) fL Neut % (Auto) 74.8 (43.0-75.0) % Lymph % (Auto) 17.1 L (20.5-60.0) % Craig % (Auto) 6.7 (1.7-12.0) % Eos % (Auto) 0.8 L (0.9-7.0) % Baso % (Auto) 0.3 (0.2-2.0) % Neut # (Auto) 10.7 H (1.4-6.5) 10^3/uL Lymph # (Auto) 2.4 (1.2-3.8) 10^3/uL Craig # (Auto) 1.0 H (0.3-0.8) 10^3/uL Eos # (Auto) 0.1 (0.0-0.7) 10^3/uL Baso # (Auto) 0.0 (0.0-0.1) 10^3/uL Abs Immat Gran (auto) 0.04 H (0.00-0.03) 10^3/uL Imm/Tot Granulo (auto) 0.3 (0.0-0.5) % Sodium 138 (136-145) mmol/L Potassium 3.5 (3.5-5.1) mmol/L Chloride 104 (98-107) mmol/L Carbon Dioxide 25.9 (21.0-32.0) mmol/L Anion Gap 11.6 BUN 13.0 (7.0-18.0) mg/dL Creatinine 0.80 (0.55-1.02) mg/dL Est GFR ( Amer) >60 (>=60 mL/min/1.73m^2) Est GFR (Non-Af Amer) >60 (>=60 mL/min/1.73m^2) BUN/Creatinine Ratio 16.2 Glucose 106 (74-106) mg/dL Calcium 8.9 (8.5-10.1) mg/dL Total Bilirubin 0.6 (0.2-1.0) mg/dL AST 11 L (15-37) U/L ALT 19 (14-59) U/L Alkaline Phosphatase 73 (46-116) U/L Total Protein 7.7 (6.4-8.2) g/dL Albumin 3.7 (3.4-5.0) g/dL Globulin 4.0 g/dL Albumin/Globulin Ratio 0.9 Lipase 18.0 (16.0-77.0) U/L Urine Color Yellow (YELLOW) Urine Clarity Clear (CLEAR) Urine pH 5.5 (5.0-9.0) Ur Specific [place] >=1.030 A (1.005-1.025) Urine Protein Trace (NEG/TRACE) mg/dL Urine Glucose (UA) Negative (NEGATIVE) mg/dL Urine Ketones Negative (NEGATIVE) mg/dL Urine Occult Blood Negative (NEGATIVE) Urine Nitrite Negative (NEGATIVE) Urine Bilirubin Negative (NEGATIVE) Urine Urobilinogen 1.0 (0.2-1.0) EU/dL Ur Leukocyte Esterase Negative (NEGATIVE) Urine HCG, Qual Negative (NEGATIVE) Imaging Data CT scan - abdomen: Radiologist's impression: ITS Impressions Abdomen/Pelvis CT 12/08/24 19:31 IMPRESSION: 1. Acute diverticulitis versus short appendix with appendicitis projecting from the lower lateral margin of the cecum. Diverticulitis is favored.Moderate surrounding inflammatory changes. No free air or free fluid. No bowel obstruction. 2. Prior gastric bypass surgery. No suspicious associated findings. 3. Right adrenal mass 2.0 cm in size; nonspecific. Consider CT abdomen with and without IV contrast using the adrenal gland protocol. 4. Large 8.1 cm uterine mass suspected represent a leiomyoma. Electronically authenticated by: PHYLLIS BROWN Date: 12/08/2024 20:54 Discharge Plan Discharge Chief Complaint: Abdominal Pain Clinical Impression: Abdominal pain, Diverticulitis Patient Disposition: Home, Self-Care Time of Disposition Decision: 21:41 Condition: Good Mode of Transportation: Private Vehicle Prescriptions / Home Meds: New ciprofloxacin HCl [Cipro] 500 mg tablet 500 mg PO BID 10 Days Qty: 20 0RF metronidazole 500 mg tablet 500 mg PO TID 10 Days Qty: 30 0RF ondansetron 4 mg tablet,disintegrating 4 mg PO Q8H PRN (Reason: nausea and vomiting) Qty: 12 0RF hydrocodone-acetaminophen 5-325 mg tablet 1 tab PO Q8H PRN (Reason: pain) 3 Days Qty: 9 0RF No Action sumatriptan succinate 25 mg tablet 25 mg PO levothyroxine [Synthroid] 125 mcg tablet 125 mcg omeprazole 20 mg capsule,delayed release(DR/EC) 20 mg metformin 500 mg tablet extended release 24 hr 500 mg PO ropinirole 4 mg tablet 4 mg desvenlafaxine succinate 50 mg tablet extended release 24 hr 50 mg PO Print Language: Croatian Instructions: Diverticulitis (ED), Abdominal Pain (ED) Additional Instructions: Return to the ER for worsening symptoms, continued pain, fever. Referrals: REYNA ALVARENGA [Primary Care Provider] - 1 week
[2024-12-08] MEDS: FENTANYL CITRATE/PF 100 MCG/2 ML VIAL 50 MCG IV ×2 (19:20→20:55)
[2024-12-08] MEDS: ONDANSETRON PF 4 MG/2 ML VIAL IV (19:20)
[2024-12-08 19:21] LABS: Basophils Percent Auto 0.3 % (0.2-2.0); Eosinophils Absolute Auto 0.1 10^3/uL (0.0-0.7); Eosinophils Percent Auto 0.8 % (0.9-7.0); Hematocrit 40.5 % (36.0-48.0); Hemoglobin 13.2 g/dL (12.0-16.0); Immature Granulocytes Abs Auto 0.04 10^3/uL (0.00-0.03); Immature Granulocytes Pct Auto 0.3 % (0.0-0.5); Lymphocytes Absolute Auto 2.4 10^3/uL (1.2-3.8); Lymphocytes Percent Auto 17.1 % (20.5-60.0); Mean Corpuscular HGB Conc 32.6 g/dL (29.9-35.2); Mean Corpuscular Hemoglobin 30.3 pg (26.7-34.0); Mean Corpuscular Volume 92.9 fL (81.0-99.0); Monocytes Percent Auto 6.7 % (1.7-12.0); Neutrophils Absolute Auto 10.7 10^3/uL (1.4-6.5); Neutrophils Percent Auto 74.8 % (43.0-75.0); Platelet Count 266 10^3/uL (150-450); Red Blood Count 4.36 10^6/uL (4.20-5.40); Red Cell Distribution Width 13.1 % (11.0-15.0); White Blood Count 14.2 10^3/uL (4.0-11.0)
[2024-12-08 19:24] LABS: Bilirubin Urine NEGATIVE (NEGATIVE); Blood Urine NEGATIVE (NEGATIVE); Clarity Urine CLEAR (CLEAR); Color Urine YELLOW (YELLOW); Glucose Urine UA NEGATIVE (NEGATIVE); Ketones Urine NEGATIVE (NEGATIVE); Leukocyte Esterase Urine NEGATIVE (NEGATIVE); Nitrite Urine NEGATIVE (NEGATIVE); Protein Urine TRACE mg/dL (NEG/TRACE); Specific Gravity Urine >=1.030 (1.005-1.025); pH Urine 5.5 (5.0-9.0)
[2024-12-08 19:27] LABS: HCG Qualitative Urine* NEGATIVE (NEGATIVE); Internal Control Within Normal Limits; Urine Microscopic Indicated NO
--- NOTE | 2024-12-08 19:31 | CT_ITS ---
[address] [address] Patient Name: MARIA DOLORES PHILLIP MRN: [id number] date: 1980 Sex: F Assigned Patient Location: ER Current Patient Location: Accession/Order Number: [id number] Exam Date: 12/08/2024 20:07 Report Date: 12/08/2024 20:54 At the request of: MIGEL SANDOVAL Procedure: CT abdomen pelvis w con EXAMINATION: CT abdomen pelvis w con HISTORY: Right-sided abd pain COMPARISON: No relevant comparison available. TECHNIQUE: Axial, Coronal, and Sagittal images were obtained without and/or with IV contrast as indicated by examination type. Dose reduction techniques were achieved by using automated exposure control and/or adjustment of mA and/or kV according to patient size and/or use of iterative reconstruction technique. FINDINGS: LUNG BASES: No visible pulmonary or pleural disease. LIVER: No enlargement, atrophy, suspicious density, or significant focal lesion. BILIARY: No dilatation or calcification. PANCREAS: No lesion, fluid collection, or abnormal duct dilatation. SPLEEN: No enlargement or focal lesion. ADRENALS: 2.0 cm right adrenal mass; nonspecific. KIDNEYS: No mass, obstruction, or calcification. BOWEL/MESENTERY: Prior gastric bypass surgery. 2.2 cm rounded structure along the lateral margin of cecum suspected represent inflamed diverticulum. Moderate inflammatory changes of the surrounding fat. No free air or free fluid. AORTA/VASCULAR: No aneurysm or dissection. RETROPERITONEUM: No mass or adenopathy. LYMPH NODES: No adenopathy. URINARY BLADDER: No visible focal wall thickening, lesion, or calculus. PELVIC ORGANS: 8.1 cm rounded heterogeneous mass projecting cephalad from uterine fundus favoring a large leiomyoma. ABDOMINAL WALL: No mass or hernia. BONES: No bony lesion or fracture. OTHER: Negative. CT/CT abdomen pelvis w con IMPRESSION: 1. Acute diverticulitis versus short appendix with appendicitis projecting from the lower lateral margin of the cecum. Diverticulitis is favored.Moderate surrounding inflammatory changes. No free air or free fluid. No bowel obstruction. 2. Prior gastric bypass surgery. No suspicious associated findings. 3. Right adrenal mass 2.0 cm in size; nonspecific. Consider CT abdomen with and without IV contrast using the adrenal gland protocol. 4. Large 8.1 cm uterine mass suspected represent a leiomyoma. Electronically authenticated by: PHYLLIS BROWN Date: 12/08/2024 20:54
[2024-12-08 19:37] LABS: Alanine Aminotransferase 19 U/L (14-59); Albumin Globulin Ratio 0.9; Albumin Level 3.7 g/dL (3.4-5.0); Alkaline Phosphatase 73 U/L (46-116); Anion Gap 11.6; Aspartate Amino Transferase 11 U/L (15-37); BUN Creatinine Ratio 16.2; Bilirubin Total 0.6 mg/dL (0.2-1.0); Calcium 8.9 mg/dL (8.5-10.1); Carbon Dioxide 25.9 mmol/L (21.0-32.0); Chloride 104 mmol/L (98-107); Estimated GFR (African America >60 (>=60 mL/min/1.73m^2); Estimated GFR (Non-African Ame >60 (>=60 mL/min/1.73m^2); Glucose 106 mg/dL (74-106); Potassium 3.5 mmol/L (3.5-5.1); Sodium 138 mmol/L (136-145); Total Protein 7.7 g/dL (6.4-8.2)
[2024-12-08] MEDS: MORPHINE SULFATE 4 MG/ML VIAL IV (21:58)
[2024-12-08] MEDS: METRONIDAZOLE 250 MG TABLET 500 MG PO (21:59)
[2024-12-08] MEDS: CIPROFLOXACIN HCL 500 MG TABLET PO (21:59)
== END 2024-12-08 22:22 | disposition home or self-care (01) ==
PROVIDERS: Nurse Practitioner Family; Emergency Provider Emergency Medicine; PCP Physician Assistant
DX: K57.32 Diverticulitis of large intestine without perforation or abscess without bleeding (principal); R10.9 Unspecified abdominal pain; Z98.84 Bariatric surgery status; Z90.49 Acquired absence of other specified parts of digestive tract; Z87.442 Personal history of urinary calculi
CPT/HCPCS: 36415; 74177; 80053; 81003; 83690; 84703; 85025; 96374; 96375; 96376; 99285; J2270; J2405; J3010; Q9967